=== PATIENT | male | born 1965 | race African-American/Black ===

== ENCOUNTER 2018-08-22 07:56 | Inpatient (IN) | payer MEDICARE ==
[2018-08-21 14:38] VITALS: BMI 29.5
[2018-08-22] MEDS ORDERED: Fentanyl 100 MCG/2 ML VIAL ONE ×6 (08:57→14:08)
[2018-08-22] MEDS ORDERED: Midazolam HCl 2 mg/2 ml Vial ONE ×2 (08:57→10:43)
[2018-08-22] MEDS ORDERED: Bupivacaine HCl 0.5%/Epinephrine 1:200,000/PF 30 ml Vial ONE (09:37)
[2018-08-22] MEDS ORDERED: Thrombin 5000 UNITS/5 ML VIAL ONE (09:37)
[2018-08-22] MEDS ORDERED: Ondansetron PF 4 MG/2 ML Vial ONE (10:33)
[2018-08-22] MEDS ORDERED: PROPOFOL 200 MG/20 ML VIAL ONE (10:33)
[2018-08-22] MEDS ORDERED: Rocuronium Bromide 10 MG/ML (10ML VIAL) ONE (10:33)
[2018-08-22] MEDS ORDERED: Lidocaine 1% PF 5 ML VIAL ONE (10:33)
[2018-08-22] MEDS ORDERED: ePHEDrine 50 MG/ML VIAL ONE (10:33)
[2018-08-22] MEDS ORDERED: Glycopyrrolate 0.2 MG/ML 5 ML SYRINGE ONE (10:33)
[2018-08-22] MEDS ORDERED: Dexamethasone 20 MG/5 ML VIAL ONE (10:33)
[2018-08-22] MEDS ORDERED: PROVENTIL INHALER 6.7 G (200 INHALATIONS) ONE (10:33)
[2018-08-22] MEDS ORDERED: PHENYLEPHRINE-NS 100 MCG/ML 10 ML SYRINGE ONE (10:33)
[2018-08-22] MEDS ORDERED: Lidocaine 2% Jelly 5 ML TUBE ONE (10:43)
[2018-08-22] MEDS ORDERED: Albuterol Sulfate HFA (OR ONLY) ONE (11:17)
[2018-08-22] MEDS ORDERED: Promethazine HCl 25 MG/ML VIAL ONE (13:11)
[2018-08-22] MEDS ORDERED: HYDROmorphone 0.5 MG/0.5 ML SYRINGE ONE (14:12)
--- NOTE | 2018-08-25 11:39 | OP ---
DATE OF PROCEDURE: 08/22/2018 MACHINE LEARNING INTERN: Joseph Dixon PA-C INDICATION: Neurologic decline. 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 PROCEDURE PERFORMED: Posterior cervical decompression, C7-T1. ANESTHESIA: General. DESCRIPTION OF PROCEDURE: The patient was brought into the operating room and placed under general anesthesia. He was flipped carefully from a supine to a prone position on the operating room table with careful attention in maintaining the neutral aspect of his neck, which was confirmed on lateral C-arm fluoroscopy. The posterior cervical incision was planned over C7-T1. After prepping and draping and after preoperative pause, the incision was created. The soft tissues were swept away from midline. Self-retaining retractors were placed in the wound for optimal exposure. After confirming the appropriate level with lateral oblique and AP views, C7-T1 laminectomy was performed in order to decompress the C7-T1 segment, where the patient had a critically high grade stenosis with signal change. After decompressing the segment, the wound was irrigated. Hemostasis was maintained throughout. The wound was then closed in anatomic layers and a pressure dressing was applied. There were no known procedural complications. Job ID: [id number]
--- NOTE | 2018-09-02 12:46 | PRG ---
DATE OF SERVICE: 09/02/2018 SUBJECTIVE: Mr. Amado remains in the ICU secondary to lack of bed availability on the surgical floor. He had a relatively uneventful 24 hours and he notes substantially improved pain control with FARM MACHINERY MECHANIC. I will ultimately defer to the Pain Management Service for timing and appropriate medications to transition him from a FARM MACHINERY MECHANIC to oral medicines. He reports working with Physical Therapy and Occupational Therapy yesterday, where they sat him up at bedside and even had him stand. I examined him again today myself where he has a stable exam. He has with near-normal central office maintainer strength on the left. He has fairly strong central office maintainer on the right side, but clearly has persistent weakness in the 4th and 5th digits, as well as muscle atrophy that he has had for quite some time. He has antigravity with hands and with legs. He can dorsiflex and plantar flex the feet. He has intact sensation throughout on exam. This clearly represents an improvement for him as compared to his night of admission. I also inspected his incision, he has had a rather copious amount of serosanguinous fluid coming out of the upper aspect. I believe this likely represents a seroma. I worked to express all this until it stopped leaking. There has been no evidence for spinal fluid leak, nor does he report any postural headaches, to make me believe he has one. We put a dry bandage on it and by the time I left the room , it did remain dry. I continued to advocate for inpatient rehab for Mr. Amado. I believe that if he would have gone there immediately after surgery, he likely would avoided his current predicament but he declined to do so. He remains myelopathic. 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 He clearly has some frustration and is anxious as I would anticipate. The plan will be to transition from the ICU to the floor. We will continue to monitor his incision. The goal then will be to go from the hospital to the inpatient rehab setting, setting an aggressive physical therapy. In the meanwhile, he will continue to receive physical therapy and occupational therapy on the inpatient side. Job ID: [id number] [facility]
== END 2018-08-22 15:35 | disposition home or self-care (01) | DRG 519 ==
LOC: SURG A 07:56 → EDSTATUS 08:57
PROVIDERS: ADMIT Neurological Surgery; ATTEND Neurological Surgery
PROC: 00NW0ZZ Release Cervical Spinal Cord, Open Approach (ICD-10-PCS; principal; 2018-08-22)
DX: M48.02 Spinal stenosis, cervical region (principal); M47.12 Other spondylosis with myelopathy, cervical region
CPT/HCPCS: 76000; J0670; J1100; J1170; J2001; J2250; J2405; J2550; J2704; J3010; J3490

== ENCOUNTER 2018-08-30 15:40 | Inpatient (IN) | payer MEDICARE ==
[~2018-08-30 15:40] MED LIST: Dexamethasone 20 MG/5 ML VIAL ONE; Lidocaine 1% PF 5 ML VIAL ONE; Ondansetron PF 4 MG/2 ML Vial ONE; PHENYLEPHRINE-NS 100 MCG/ML 10 ML SYRINGE ONE; PROPOFOL 200 MG/20 ML VIAL ONE; Rocuronium Bromide 10 MG/ML (10ML VIAL) ONE; Succinylcholine Chloride 20 MG/ML 10 ml SYRINGE FS ONE; Vecuronium 10 MG VIAL ONE; ePHEDrine 50 MG/ML VIAL ONE
[2018-08-30 17:22] LABS: #Basophils 0.1 thou/uL (0.0-0.2); #Lymphocytes 2.8 thou/uL (1.20-3.40); #Neutrophils 7.2 thou/uL (1.40-6.50); %Eosinophils 0.4 % (0.0-10.0); %Lymphocytes 25.3 % (21.0-51.0); %Monocytes 8.7 % (0.0-10.0); %Neutrophils 64.6 % (42.0-75.0); Hemoglobin 16.5 g/dL (14.0-18.0); Mean Corpuscular HGB CONC 33.9 g/dL (32.0-36.0); Mean Corpuscular Hemoglobin 31.9 pg (27.0-31.0); Mean Corpuscular Volume 94.1 fL (78.0-98.0); Mean Platelet Volume 7.2 fL (7.4-10.4); Platelet Count 291 thou/uL (130-400); RBC Distribution Width 12.4 % (11.5-14.5); Red Blood Cell (RBC) Count 5.18 mill/uL (4.70-6.10); White Blood Cell (WBC) Count 11.2 thou/uL (4.8-10.8)
[2018-08-30] MEDS ORDERED: Morphine 4 MG/ML VIAL ONE (17:22)
--- NOTE | 2018-08-30 17:22 | CT ---
FCT thoracic spine, noncontrast CLINICAL HISTORY: Weakness, decreased sensation FINDINGS: There is a partially imaged postoperative change and prominent osseous irregularity with sc lerosis of the lower cervical spine. Please correlate with report from separately dictated cervical s pine CT exam for additional details in this regard. Spondylolisthesis at C7-T1 level is again demonst rated. There is evidence of posterior decompression at the low cervical spine with ill-defined sample collector ior paraspinous fluid density with overlying metallic chandan, related to recent surgery. There is pa tchy sclerosis of the superior aspect of the T1 vertebral body adjacent the prominent arthropathy of the low cervical spine favoring Modic type III degenerative change. There is fragmentation of anterio r osteophyte at the anterior T1 vertebral body. Evaluation of the postoperative vertebral canal at th is region is not reliably performed on the basis of noncontrast CT imaging. There is disc space narrowing, marginal osteophyte formation and endplate sclerosis involving the T6 and T7 levels, favoring degenerative process. No acute compression fracture of the thoracic spine. No significant retropulsion of bone into the aura tebral canal. Contents of vertebral canal are limited in assessment on the basis of noncontrast CT im aging. Incidental note of mildly prominent mediastinal lymph nodes. Correlate clinically. IMPRESSION: Extensive sclerosis and osseous remodeling with disc space narrowing and spondylolisthesi s at the incidentally images lower cervical spine adjacent partially imaged side of hardware fusion. Correlate with separately dictated CT cervical spine report for additional details. Presumed postoperative fluid density, ill-defined and incompletely assessed on noncontrast CT imaging at site of posterior decompression of the low cervical spine, with overlying skin chandan. Vertebral canal contents including cervical spinal cord in this region is not reliably assessed. Given neurolo gic deficits, consider MRI to further characterize. There is sclerosis of the T6-7 level with associated disc space narrowing, endplate irregular and mar ginal osteophyte formation favoring Modic type III degenerative sclerosis. No acute thoracic spine compression fracture or retropulsion of bone. Transcribed Date/Time: 08/30/2018 7:12 PM
--- NOTE | 2018-08-30 17:24 | CT ---
FCT cervical spine noncontrast: 08/30/2018 HISTORY: 52-year-old male with right upper extremity weakness. Decreased motor function and numbness in bilate ral upper extremity is and lower extremities. Bladder incontinence. Bowel incontinence. COMPARISON: None FINDINGS: Anterior metallic plate and screws at C3, C4, and C5. Successful ankylosis between the C3, C4, and C5 vertebral bodies by bony bridges across the endplates. Bony hypertrophy of the vertebral bodies and endplates encroach upon the anterior aspect of the spinal canal causing central spinal canal stenosis . There is moderate to severe degenerative disc disease at C5-6, C6-7, and C7-T1. There is a prominen t grade 1 anterolisthesis of C7 on T1 due to moderate bilateral facet DJD. Moderate to severe left fa cet DJD at C5-6. No evidence of hardware loosening. Moderate and large bilateral uncinate process ost eophytes encroach upon the bilateral neural foramina. All of these hypertrophic degenerative changes are superimposed on a developmentally small caliber spinal canal. C1-2: No additional exacerbation of developmentally small caliber spinal canal. Mild to moderate cent ral stenosis. C2-3: Mild disc space narrowing. No exacerbation of developmentally small caliber spinal canal. No ne ural foraminal stenosis. C3-4: Moderate to severe central spinal canal stenosis. Severe bilateral neural foraminal stenosis. C4-5: Moderate central spinal canal stenosis, right worse than left. Severe right neural foraminal st enosis. Mild to moderate left neural foraminal stenosis. C5-6: Moderate central spinal canal stenosis. Severe bilateral neural foraminal stenosis. C6-7: Moderate to severe central spinal canal stenosis. Moderate to severe right neural foraminal sang nosis. Mild to moderate left neural foraminal stenosis. C7-T1: Severe bilateral neural foraminal stenosis. Moderate central stenosis. IMPRESSION: 1. Developmentally small caliber spinal canal exacerbated by cervical spondylosis. 2. Multilevel high-grade central spinal canal stenosis and multilevel severe neural foraminal stenosi s. 3. Status post anterior cervical discectomy and fusion at C3-4-5 with successful ankylosis of vertebr al bodies. 4. Prominent grade 1 spondylolisthesis at C7-T1 due to bilateral high-grade facet osteoarthrosis.
[2018-08-30 17:37] LABS: ALT (SGPT) 19 U/L (8-55); AST (SGOT) 17 U/L (5-34); Albumin 4.5 g/dL (3.5-5.0); Alkaline Phosphatase 73 U/L (40-150); Anion Gap 15 mmol/L (10-20); BUN (Urea Nitrogen) 11 mg/dL (8.4-25.7); Bilirubin, Total 0.4 mg/dL (0.2-1.2); Calc. Creatinine Clearance 0 mL/min (70-130); Calcium 9.8 mg/dL (7.8-10.44); Carbon Dioxide 24 mmol/L (22-29); Chloride 99 mmol/L (98-107); Estimated GFR-MDRD Greater than 90; Globulin 3.3 g/dL (2.4-3.5); Glucose 100 mg/dL (70-105); Potassium 3.9 mmol/L (3.5-5.1); Protein, Total 7.8 g/dL (6.0-8.3); Sodium 134 mmol/L (136-145)
[2018-08-30] MEDS ORDERED: Diazepam 5 MG TAB ONE (17:48)
[2018-08-30] MEDS ORDERED: Midazolam HCl 2 mg/2 ml Vial ONE ×2 (18:41→23:42)
[2018-08-30] MEDS ORDERED: Fentanyl 100 MCG/2 ML VIAL ONE ×3 (18:41→23:42)
--- NOTE | 2018-08-30 18:52 | MRI ---
FCT neck with contrast: 08/30/2018 HISTORY: 29-year-old male with fever and throat pain. FINDINGS: There are multiple nonnecrotic enlarged cervical lymph nodes at levels 1B, 2A, and 2B bilaterally. Fo r example, a level 2A lymph node on the left measures 2.5 x 2 x 1.5 cm. One of the right level 2B lym ph nodes measures 2 x 0.8 x 2.5 cm. There is diffuse hyperplasia of the adenoids. [place] tonsils ar e bilaterally symmetrically mildly to moderately enlarged. Epiglottis is of normal thickness. Lingual tonsil is minimally enlarged. No retropharyngeal abscess. Unremarkable thyroid. Mucosal thickening o f true and false focal cords, and aryepiglottic folds. Other than the lymphadenopathy, no other abnor mality is identified involving the parotid, carotid, submandibular, retropharyngeal, welcome center agent, para pharyngeal, and posterior cervical, spaces. No thyroid enlargement. IMPRESSION: 1. Findings suggestive of a diffuse infectious or inflammatory process, perhaps viral, with hyperplas ia of Waldeyer's ring, laryngitis, and upper cervical lymphadenopathy. 2. No abscess.
--- NOTE | 2018-08-30 19:32 | PRG ---
DATE OF SERVICE: 08/30/2018 SUBJECTIVE: Mr. Amado is a 52-year-old man, approximately a week out from a C7-T1 laminectomy. This was done for myelopathy. He initially demonstrated improvement, but over the last few days has gotten worse involving quadriparesis , loss of the ability of walking, urinary and fecal incontinence. Review of a CT demonstrates C7 on T1 spondylolisthesis. This was present preoperatively as well, although there is not a clear change in this, there does appear to be a new disc extrusion at C7-T1 that became symptomatic potentially after a coughing spell. MRI confirms areas of cord edema and associated stenosis from C5 to the top of T1 and a laminectomy defect at C7-T1.I am concerned about a stenotic cord compression, and as such, we will plan to return to the OR. I will plan to do a C5 through T1 laminectomy, partial facetectomy, and foraminotomies with screw and zeb fixation at C5, C6, possibly C7, T1, and T2. I discussed the goals, indications, risks, alternatives, and complications regarding the surgery up to and including, but not limited to, wound healing issues such as infection, dehiscence, CSF leak, the need for more surgeries for bleeding, instrumentation failure, or recurrence or persistence of stenosis or other reasons. He understands these risks and wishes that we proceed with surgery. He also understands there is a risk of temporary and permanent neurologic deficit that could be persistent or residual or worsen. He understands that if we do not do anything that his chance of potential recovery is minimal and his chance of worsening is substantial. On exam, he is alert, appropriate. He is very weak in his UE and unable to lift his upper extremities over 90 degrees. He has significant hand intrinsic weakness and atrophy, right greater than left UE and hand, and also weakness essentially from C5 distal. He is only weakly able to move his lower extremities, and he has clonus in the right lower extremity. #1 Neurological decline with cervical stenosis and spondylolisthesis Job ID: [id number] [facility]
[2018-08-30] MEDS ORDERED: Sodium Chloride 0.9% 20 ML ONE (19:52)
[2018-08-30] MEDS ORDERED: Thrombin 5000 UNITS/5 ML VIAL ONE ×2 (19:52→21:43)
[2018-08-30] MEDS ORDERED: Bacitracin Zinc Ointment 30 gm TUBE ONE (21:43)
[2018-08-31] MEDS ORDERED: Propofol 1,000 MG/100 ML VIAL IV ONE (00:58)
[2018-08-31] MEDS ORDERED: Fleet Enema 133 ML BOT PR PRN (01:29)
[2018-08-31] MEDS ORDERED: Ondansetron PF 4 MG/2 ML Vial IVP PRN ×2 (01:29→13:54)
[2018-08-31] MEDS ORDERED: traMADol HCl 50 MG TAB PO PRN (01:29)
[2018-08-31] MEDS ORDERED: Mag-Al 1200 mg/1200 mg/30 ML UDCUP PO PRN (01:29)
[2018-08-31] MEDS ORDERED: Milk Of Magnesia 30 ML UDCUP PO PRN (01:29)
[2018-08-31] MEDS ORDERED: Bisacodyl 10 MG SUPP PR PRN (01:29)
[2018-08-31] MEDS ORDERED: Acetaminophen/Codeine 30-300mg Tablet PO PRN (01:29)
[2018-08-31] MEDS ORDERED: Acetaminophen 325 MG TAB PO PRN (01:29)
[2018-08-31 01:35] LABS: Actual Bicarbonate (HCO3a) 23.2 mEq/L (22-28); Base Excess (BEa) -2.5 mEq/L (-2.0 to +3.0); CO2 Tension 43.3 mmHg (35.0-45.0); Calcium, Ionized 1.13 mmol/L (1.12-1.30); Carboxyhemoglobin (COHb) 4.5 gm% (0.0-3.0); Hemoglobin (Hb) 15.8 g/dL (14.0-18.0); O2 Tension (PaO2) 118.2 mmHg (80.0-100.0); Potassium - ABG Lab 4.05 mmol/L (3.70-5.30); pH, Arterial 7.35 (7.35-7.45)
[2018-08-31 01:36] LABS: ALV-art Gradient 112.875 (0-20); Puncture Site ALINE
[2018-08-31] MEDS ORDERED: Propofol BOLUS 1,000 MG/100 ML VIAL IV PRN (01:51)
[2018-08-31] MEDS ORDERED: Propofol 1,000 MG/100 ML VIAL IV PRN (01:51)
[2018-08-31] MEDS ORDERED: Morphine 2 MG/ML SYRINGE SLOW IVP PRN (01:51)
[2018-08-31] MEDS ORDERED: fentaNYL Citrate/PF 2,000 MCG in Sodium Chloride 0.9% 60 ML IV SCH (01:51)
[2018-08-31] MEDS ORDERED: Lorazepam 2 MG/ML VIAL SLOW IVP PRN (01:51)
[2018-08-31] MEDS ORDERED: DISCONTINUE PREVIOUS NARCOTIC PAIN MEDICATIONS AND BENZODIAZEPINES FS SCH (01:51)
[2018-08-31] MEDS ORDERED: Fentanyl BOLUS 250 ML IVPB PRN (01:51)
[2018-08-31 01:55] LABS: INR-International Normal Ratio 1.1; PTT 27.9 SEC (22.9-36.1); Prothrombin Time 14.2 SEC (12.0-14.7)
[2018-08-31] MEDS ORDERED: Sodium Chloride 0.9% 1,000 ML IV SCH (02:00)
[2018-08-31] MEDS: Sodium Chloride 0.9% 1,000 ML IV SCH ×2 (02:05→14:43)
[2018-08-31 02:21] LABS: CO2 Tension 35.7 mmHg (35.0-45.0); Calcium, Ionized 1.12 mmol/L (1.12-1.30); Carboxyhemoglobin (COHb) 3.4 gm% (0.0-3.0); Hemoglobin (Hb) 15.8 g/dL (14.0-18.0); O2 Tension (PaO2) 142.8 mmHg (80.0-100.0); Potassium - ABG Lab 3.87 mmol/L (3.70-5.30); pH, Arterial 7.41 (7.35-7.45)
[2018-08-31] MEDS: CEFAZOLIN 2 GM in Premix Bag 1 BAG IVPB SCH ×3 (02:21→18:48)
[2018-08-31 02:27] VITALS: BMI 30.6
[2018-08-31 02:35] LABS: ALV-art Gradient 97.775 (0-20); Analyzer IN Cardio ER; Puncture Site ALINE
[2018-08-31] MEDS: HYDROcodone/Acetaminophen 7.5/325 mg Tablet PO PRN ×3 (02:35→11:41)
[2018-08-31] MEDS: Morphine 2 MG/ML SYRINGE SLOW IVP PRN ×6 (03:01→12:47)
[2018-08-31] MEDS: Dexamethasone 4 mg/ml Vial SLOW IVP SCH ×3 (05:36→18:44)
[2018-08-31] MEDS: tiZANidine HCl 4 MG TAB PO PRN ×2 (05:37→11:39)
[2018-08-31] MEDS: Pantoprazole 40 MG VIAL IVP SCH (09:43)
--- NOTE | 2018-08-31 10:16 | PDOC.PN ---
- Subjective Encounter Start Date: 08/31/18 Encounter Start Time: 09:30 Subjective: pt up in bed complains of pain to his cervical area. -: pt upset since he had a bad night due to significant pain - Objective Vital Signs & Weight: Vital Signs (12 hours) Temp Pulse Resp Pulse Ox 08/31/18 04:00 98.1 F 96 08/31/18 02:00 17 08/31/18 01:08 139 H 08/31/18 01:00 98.0 F 100 Weight Weight 225 lb 15.581 oz Most Recent Monitor Data Heart Rate from ECG 90 NIBP 143/84 NIBP BP-Mean 103 Respiration from ECG 21 SpO2 96 I&O: 08/30/18 08/31/18 09/01/18 06:59 06:59 06:59 Intake Total 575 Output Total 315 Balance 260 Result Diagrams: 08/30/18 17:13 08/30/18 17:13 Phys Exam - Physical Examination neck in brace upper lung mild wheezing, no wheezing to lower lung Cardiovascular: RRR, no significant murmur, no rub, gallop, irregular Gastrointestinal: soft, non-tender, no distention, positive bowel sounds Musculoskeletal: no edema, pulses present, edema present Dx/Plan (1) Leukocytosis Code(s): D72.829 - ELEVATED WHITE BLOOD CELL COUNT, UNSPECIFIED Status: Acute (2) Smoking Code(s): F17.200 - NICOTINE DEPENDENCE, UNSPECIFIED, UNCOMPLICATED Status: Acute (3) Post-laminectomy syndrome Code(s): M96.1 - POSTLAMINECTOMY SYNDROME, NOT ELSEWHERE CLASSIFIED Status: Acute - Plan pt has mild wheezing and cough, will add duonebs. He is a smoker and has -: been trying to quit. will put him on a nicotine patch. leukocytosis -: most likely reactive. * . Review of Systems - Review of Systems Respiratory: negative: Cough, Dry, Shortness of Breath, Hemoptysis, SOB with Excertion, Pleuritic Pain, Sputum, Wheezing Cardiovascular: negative: chest pain, palpitations, orthopnea, paroxysmal nocturnal dyspnea, edema, light headedness, other Gastrointestinal: negative: Nausea, Vomiting, Abdominal Pain, Diarrhea, Constipation, Melena, Hematochezia, Other Genitourinary: negative: Dysuria, Frequency, Incontinence, Hematuria, Retention , Other - Medications/Allergies Allergies/Adverse Reactions: Allergies Allergy/AdvReac Type Severity Reaction Status Date / Time No Known Allergies Allergy Unverified 08/21/18 14:35 Medications: Current Medications Acetaminophen (Tylenol) 650 mg PO Q4H PRN PRN Reason: Headache/Fever or Pain Acetaminophen/Codeine Phosphate (Tylenol #3) 1 tab PO Q3H PRN PRN Reason: Mild Pain (1-3) Hydrocodone Bitart/Acetaminophen ([place] 7.5/325) 2 tab PO Q4H PRN PRN Reason: Moderate Pain (4-6) Last Admin: 08/31/18 07:34 Dose: 2 tab Al Hydroxide/Mg Hydroxide (Maalox) 30 ml PO Q4H PRN PRN Reason: Indigestion Albuterol/Ipratropium (Duoneb) 3 ml NEB [id number] CECILE Bisacodyl (Dulcolax) 10 mg NV Q12H PRN PRN Reason: Constipation Dexamethasone (Decadron) 4 mg SLOW IVP Q6HR [facility] Last Admin: 08/31/18 05:36 Dose: 4 mg Cefazolin Sodium/Dextrose 2 gm (/ Device) 50 mls @ 100 mls/hr IVPB Q8H [facility] Stop: 09/03/18 02:01 Last Admin: 08/31/18 10:07 Dose: 50 mls Sodium Chloride (Normal Saline 0.9%) 1,000 mls @ 75 mls/hr IV .[id number] [facility] Last Admin: 08/31/18 02:05 Dose: 1,000 mls Magnesium Hydroxide (Milk Of Magnesium) 30 ml PO Q12H PRN PRN Reason: Constipation Morphine Sulfate (Morphine) 2 mg SLOW IVP Q1H PRN PRN Reason: Severe Pain (7-10) Last Admin: 08/31/18 09:45 Dose: 2 mg Nicotine (Nicoderm Patch) 21 mg TD Q24HR [facility] Ondansetron HCl (Zofran) 4 mg IVP Q6H PRN PRN Reason: Nausea Last Admin: 08/31/18 02:40 Dose: 4 mg Pantoprazole Sodium (Protonix) 40 mg IVP DAILY [facility] Last Admin: 08/31/18 09:43 Dose: 40 mg Sodium Biphosphate/Sodium Phosphate (Fleet Enema) 133 ml NV ONE PRN PRN Reason: Constipation Stop: 09/30/18 01:30 Sodium Chloride (Flush - Normal Saline) 10 ml IVF PRN PRN PRN Reason: Saline Flush Tizanidine HCl (Zanaflex) 4 mg PO Q6H PRN PRN Reason: Muscle Spasm Last Admin: 08/31/18 05:37 Dose: 4 mg Tramadol HCl (Ultram) 50 mg PO Q6H PRN PRN Reason: Mild Pain (1-3)
[2018-08-31] MEDS: Nicotine 21 MG PATCH TD SCH (11:04)
[2018-08-31] MEDS ORDERED: diphenhydrAMINE 50 MG/ML VIAL IM PRN (13:54)
[2018-08-31] MEDS ORDERED: Promethazine HCl 25 MG/ML VIAL IM PRN (13:54)
[2018-08-31] MEDS ORDERED: Naloxone HCl 0.4 mg/ml Vial IV PRN (13:54)
[2018-08-31] MEDS ORDERED: diphenhydrAMINE 50 MG/ML VIAL IVP PRN (13:54)
[2018-08-31] MEDS ORDERED: Communication Order-Pharmacy FS SCH (14:00)
[2018-08-31] MEDS: fentaNYL Citrate/PF 2,000 MCG in Sodium Chloride 0.9% 60 ML IV PRN (14:44)
--- NOTE | 2018-08-31 15:14 | PRG ---
DATE OF SERVICE: 08/31/2018 SUBJECTIVE: Mr. Amado is postoperative day 1 from C5 to T2 posterior to lateral stabilization and C5 to T1 decompression. This morning, obviously, he has incisional perioperative related pain, and we will add a MILLING PLANER OPERATOR pump for pain control. On exam, he is alert and appropriate. He is in a well-fitting collar, and I have let he and his girlfriend know along with the nursing staff that the collar only needs to be worn, in my opinion, when he is out of bed. Obviously, Dr. Bower will be returning tomorrow and he can weigh at in this regard based on his thoughts. OBJECTIVE: On exam, he is able to lift his bilateral elbows above the shoulder, which is already an improvement. He has moderate right upper extremity weakness in particular in his hand intrinsics, but he is able to activate his hand intrinsics, but I suspect this will be the most delayed in regard to recover. He does activate his left hand intrinsics with mild weakness, and he is able to bend his hips, knees, and move at the ankles and toes, all of which were an improvement. He has moderate right clonus in the lower extremity and mild left clonus with beats bilaterally, but again I am pleased with this. He feels as if his light touch sensation has also improved. He does feel the tug of the Arreola catheter, which is encouraging in regard to bowel and bladder function. ASSESSMENT AND PLAN: Overall, I have let the patient know that I am pleased with how he is doing. I would be fine with removal of his arterial line, but I would like to continue to maintain his MAPS over 80. We have been able to do this simply with IV fluids. We will continue his Decadron at its current dose of 4 q.6 hours and perhaps we can initiate tapering tomorrow. We will order an ultrasound of the lower extremities. I will discuss his care further with Dr. Bower and update him in regard to the patient's present condition. The patient and his girlfriend are pleased with this plan. Job ID: [id number]
[2018-08-31] MEDS ORDERED: Acetaminophen With Codeine [Tylenol With Codeine #4] 1 TABLET PO PRN (16:00)
[2018-08-31] MEDS: Gabapentin 100 MG CAP PO SCH (21:09)
[2018-08-31] MEDS: Zolpidem Tartrate 5 MG TAB PO PRN (22:09)
[2018-09-01] MEDS: Dexamethasone 4 mg/ml Vial SLOW IVP SCH ×5 (00:19→23:39)
[2018-09-01] MEDS: CEFAZOLIN 2 GM in Premix Bag 1 BAG IVPB SCH ×3 (02:24→18:17)
[2018-09-01] MEDS: Sodium Chloride 0.9% 1,000 ML IV SCH ×2 (06:59→17:30)
[2018-09-01] MEDS: fentaNYL Citrate/PF 2,000 MCG in Sodium Chloride 0.9% 60 ML IV PRN ×2 (07:12→20:38)
[2018-09-01] MEDS: Pantoprazole 40 MG VIAL IVP SCH (08:58)
[2018-09-01] MEDS: Gabapentin 100 MG CAP PO SCH ×3 (08:58→20:39)
--- NOTE | 2018-09-01 10:01 | CON ---
DATE OF CONSULTATION: HISTORY OF PRESENT ILLNESS: Ingrsi is a 52-year-old gentleman with a history that is extensively well outlined in his extensive medical records. He was seen with a week history of progressive upper and lower extremity weakness and loss of bladder and bowel function. He apparently called Dr. Bower, who was his initial neurosurgeon. Surgery was performed almost about a week ago, following which he has had significant pain. An emergency CT MRI of the neck showed evidence of central disk herniation, spondylolisthesis, posterior epidural swelling, cord edema, cord infarction, severe cord compression at C7-T1 area. He was taken to the surgery again by Dr. Portillo. Postop, he was extubated. He is now in the ICU, reason for consult. He also underwent a CT of his thoracic spine that showed evidence of disk space narrowing at the area of T6-T7. Please review the MRI note by the neuroradiologist. He is now in the ICU, who said that he is still having significant weakness of both lower and upper extremity, still has loss of bowel and bladder function. He said prior to his surgery about a week ago, he was working at [employer] and standing for 6 hours without any problem. Pulmonary aguilar, he denies any coughing or wheezing. He smokes less than a pack a day without any prior history of TB, pneumonia, or bronchial asthma. PAST MEDICAL HISTORY: Pertinent for depression. Trauma-related injury. No diabetes or hypertension. PREVIOUS SURGERIES: Neck fusion 20 years ago, anterior fusion, bilateral hip surgery, hernia repair and multiple surgeries in left ankle. SOCIAL HISTORY: Alcohol, as noted every other day. Occasional marijuana. ALLERGIES: APPARENTLY NONE. REVIEW OF SYSTEMS: Unremarkable. PHYSICAL EXAMINATION: VITAL SIGNS: He saturates 95% on room air, pulse 90, blood pressure 150/90, respiratory rate 18. CHEST: Decreased breath sounds. No wheezing. CARDIAC: Normal S1, S2. No gallops. ABDOMEN: No mass. LABORATORY DATA: White count 11,000, H and H 16 and 48, platelet count was normal. His chemistry profile shows BUN and creatinine normal. Sodium 134. IMPRESSION: 1. Status post emergency surgery for cervical C5-C2 stabilization decompression surgery. 2. Tobacco abuse. 3. Previous surgery. PLAN: Continue antibiotics. Continue Decadron neb treatment as needed. DVT prophylaxis. We will discuss with Surgery. We will follow. Consultation note, 70 minutes, 50% in direct patient care. Job ID: [id number]
--- NOTE | 2018-09-01 10:09 | RAD ---
PORTABLE UPRIGHT FRONTAL CHEST RADIOGRAPH: DATE: 09/01/2018. COMPARISON: None. HISTORY: COPD. FINDINGS: There is incompletely evaluated postoperative hardware involving the lower cervical spine and upper t horacic spine. Remote bilateral clavicle fractures are noted. No pneumothorax, pleural fluid, focal consolidation, or alveolar edema. IMPRESSION: No acute findings. POS: TPC
[2018-09-01] MEDS: Nicotine 21 MG PATCH TD SCH (10:50)
--- NOTE | 2018-09-01 11:08 | ULT ---
FUS Venous Doppler Bilat History: [Impaired mobility. Recent surgery.] Comparison: None. Findings: Real-time grayscale, color, and spectral analysis of the bilateral lower extremity venous s ystem was performed. The common femoral, femoral, proximal portions greater saphenous and deep femora l veins as well as the popliteal and posterior tibial veins were interrogated. Normal flow, augmentation, and compression. Impression: No deep venous thrombosis.
--- NOTE | 2018-09-01 11:32 | OP ---
DATE OF PROCEDURE: 08/31/2018 Modifier 57 should be added to this surgery as the decision to operate was made on the day I saw the patient. Modifier 78 should be added to this surgery as this was an unplanned return to the operating room. Modifier 50 should be added as there was a bilateral revision decompression at C7-T1. PREPROCEDURE DIAGNOSIS: Progressive myelopathy with recent cervical thoracic decompression. POSTPROCEDURE DIAGNOSIS: Progressive myelopathy with recent cervical thoracic decompression. WASTEWATER SUPERVISOR: Yaakov Liang PA-C. PROCEDURES PERFORMED: 1. C5-C7 laminectomies, partial facetectomies, foraminotomies. 2. Bilateral C7-T1 revision hemilaminotomies, foraminotomies and partial facetectomies. 3. C5, C6, C7, T1, T2 posterior instrumented placement of screws. 4. Screw zeb construct for instrumentation stabilization. 5. C5-C6, C6-C7, C7-T1, T1-T2 posterolateral arthrodesis with local bone autograft obtained from same incision allograft. DESCRIPTION OF PROCEDURE: After informed consent was obtained from the patient and emergent nature discussed with the patient, brought to the OR. Proper patient, pause, and identification were carried out. He was placed under excellent endotracheal anesthesia and positioned prone on the OR table. Following the placement of [place], his head was secured in neutral position. The prior C7-T1 wound was identified. This region was sterilely cleansed, prepared, and draped. Proper patient, pause, and identification were carried out. The incision was extended cephalad and caudal and the wound opened and removal of chandan occurred. Sutures were removed. We identified the C7-T1 laminectomy defect in the surges of localization. We then went up to expose the C5, C6, C7, T1 and T2 segments in their entirety and we were careful to avoid the T2, T3 facet complexes. We then turned our attention to laminectomies at C5-C7 and bilateral revision hemilaminotomies at C7-T1 with partial facetectomies and foraminotomies. We did these laminectomies and bilateral revision hemilaminotomies. I was satisfied with decompression at this point. There was no appreciable hematoma. I was concerned based on the review of the preoperative MRI that recent coughing fit that the patient had had could have led to a disk extrusion, which had narrowed his canal and was a likely major contributor to his acute decline. Nevertheless, I then opted for stabilization and lateral mass screws were placed at C5, C6, C7 and pedicle screws were placed under fluoroscopic visualization at T1, T2, and then placed rods and final tightening occurred. There was no CSF leak. Copious irrigation occurred throughout. I then did a decortication of posterolateral regions, local bone autograft from the laminectomy and allograft were placed over the posterolateral regions for arthrodesis. Again, copious irrigation occurred throughout as did maximizing hemostasis. The wound was then closed in anatomic layers following sprinkling of vancomycin powder. I opted to keep the patient intubated and will allow him slowly to wake up for extubation postoperatively. Job ID: [id number] [facility]
[2018-09-01] MEDS: tiZANidine HCl 4 MG TAB PO PRN (12:48)
[2018-09-01] MEDS: Acetaminophen 500 MG TAB PO SCH ×2 (13:05→19:07)
[2018-09-01] MEDS: Ketorolac Tromethamine 30 MG/ML VIAL IVP PRN ×2 (13:05→19:07)
--- NOTE | 2018-09-01 17:00 | PRG ---
DATE OF SERVICE: 09/01/2018 SUBJECTIVE: Mr. Amado is now 2 days status post emergent posterior cervical decompression and fusion. He presented with a progressive course of quadriparesis and bowel and bladder dysfunction. He is over one week out from the cervical decompression for single segment high-grade stenosis with myelopathy. He is in the ICU today, but ready to move to the floor. He is ready to begin physical therapy and occupational therapy. I have talked to the inpatient director of rehabilitation, who will be meeting with him to work toward getting him into an inpatient rehab setting. Mr. Amado has improved substantially since surgery. He is antigravity with all 4 extremities. He has nearly normal opthalmic tech strength on the left hand and weaker opthalmic tech strength on the right. He reports normal sensation throughout. He does have an indwelling urinary catheter, which we can warrant to remove either later today or tomorrow. He continues to report substantial surgical pain, which is anticipated, given the nature of his surgery. He is currently using a INTERNET MARKETING CONSULTANT for pain control. My goal is to quickly transition him from IV narcotics to oral narcotics in an effort to get him more expeditiously placed into the inpatient rehab setting. He had a lower extremity ultrasound performed, which was negative for DVT. He has been seen by global analytics head while he remains in the ICU. I had a lengthy discussion with Mr. Amado and his significant other today regarding the course of events over the last few months as well as the last week with respect to his surgical procedures. I do believe he will continue to recover, but it will take some time. He is quite optimistic about his chances for recovery and eager to move toward rehabilitation. Job ID: [id number] [facility]
[2018-09-01] MEDS: Zolpidem Tartrate 5 MG TAB PO PRN (23:39)
[2018-09-02] MEDS: Ketorolac Tromethamine 30 MG/ML VIAL IVP PRN ×4 (01:08→21:02)
[2018-09-02] MEDS: Acetaminophen 500 MG TAB PO SCH ×3 (01:09→14:37)
[2018-09-02] MEDS: CEFAZOLIN 2 GM in Premix Bag 1 BAG IVPB SCH ×3 (02:27→18:36)
[2018-09-02] MEDS: Dexamethasone 4 mg/ml Vial SLOW IVP SCH ×4 (06:42→23:47)
[2018-09-02] MEDS: Gabapentin 100 MG CAP PO SCH ×3 (09:05→21:02)
[2018-09-02] MEDS: Pantoprazole 40 MG VIAL IVP SCH (09:06)
--- NOTE | 2018-09-02 10:00 | PRG ---
DATE OF SERVICE: 09/02/2018 SUBJECTIVE: This morning, he is surprisingly much better. Less pain, less shortness of breath. OBJECTIVE: VITAL SIGNS: Pulse 80, respiratory rate 22, saturations are 95%, blood pressure 127/77. CHEST: No wheezing or crackles. CARDIAC: Normal S1 and S2. No gallops. ABDOMEN: No masses. ASSESSMENT: Neurologically, he has much improved both upper and lower extremities strength. PLAN: 1. Continue aggressive PT and supportive care. 2. DVT prophylaxis. 3. We will follow. Job ID: [id number]
[2018-09-02] MEDS: Nicotine 21 MG PATCH TD SCH (10:32)
[2018-09-02] MEDS: Lorazepam 0.5 MG TAB PO PRN ×2 (11:14→18:48)
[2018-09-02] MEDS: fentaNYL Citrate/PF 2,000 MCG in Sodium Chloride 0.9% 60 ML IV PRN (12:18)
[2018-09-02] MEDS: Sodium Chloride 0.9% 1,000 ML IV SCH (14:40)
--- NOTE | 2018-09-02 17:02 | PDOC.PN ---
- Subjective Encounter Start Date: 09/02/18 Encounter Start Time: 17:01 Mr. Amado was seen today in follow-up of medical management following Spinal surgery. He says the pain is much better controlled today.He does not have any new complaints. - Objective MAR Reviewed: Yes Vital Signs & Weight: Vital Signs (12 hours) Temp Pulse Resp Pulse Ox 09/02/18 13:52 73 15 96 09/02/18 08:00 98.4 F 95 09/02/18 07:09 80 22 H 95 Weight Weight 225 lb 15.581 oz Most Recent Monitor Data Heart Rate from ECG 78 NIBP 146/83 NIBP BP-Mean 104 Respiration from ECG 17 SpO2 93 I&O: 09/01/18 09/02/18 09/03/18 06:59 06:59 06:59 Intake Total 3797.3 2377.3 480 Output Total 2585 2415 230 Balance 1212.3 -37.7 250 Result Diagrams: 08/30/18 17:13 08/30/18 17:13 Phys Exam - Physical Examination HEENT: PERRLA Respiratory: wheezing present + occasional wheeze Cardiovascular: RRR, no significant murmur, no rub Gastrointestinal: soft, non-tender, no distention, positive bowel sounds Musculoskeletal: no edema Dx/Plan (1) Cervical post-laminectomy syndrome Status: Acute (2) Smoking Code(s): F17.200 - NICOTINE DEPENDENCE, UNSPECIFIED, UNCOMPLICATED Status: Acute - Plan * Patient is s/p cervical decompression and fusion- he is clinically stable * Pain is well controlled * Tobacco abuse- he says he is enrolled in a smoking cessation program through Dr. Wolfe his primary Care Physician. * Continue with Incentive spirometry, and duonebs as needed.
[2018-09-02] MEDS: Acetaminophen 500 MG TAB PO PRN (21:02)
[2018-09-02] MEDS: Zolpidem Tartrate 5 MG TAB PO PRN (23:47)
[2018-09-03] MEDS: fentaNYL Citrate/PF 2,000 MCG in Sodium Chloride 0.9% 60 ML IV PRN ×2 (01:24→11:54)
[2018-09-03] MEDS: CEFAZOLIN 2 GM in Premix Bag 1 BAG IVPB SCH ×3 (01:25→20:27)
[2018-09-03] MEDS: Ketorolac Tromethamine 30 MG/ML VIAL IVP PRN ×4 (02:59→20:59)
[2018-09-03] MEDS: Lorazepam 1 MG TAB PO PRN ×4 (02:59→20:58)
[2018-09-03] MEDS: Acetaminophen 500 MG TAB PO PRN ×4 (02:59→20:58)
[2018-09-03] MEDS: Dexamethasone 4 mg/ml Vial SLOW IVP SCH ×4 (05:32→23:54)
[2018-09-03] MEDS: tiZANidine HCl 4 MG TAB PO PRN ×3 (06:00→17:27)
[2018-09-03] MEDS: Pantoprazole 40 MG VIAL IVP SCH (09:02)
[2018-09-03] MEDS: Gabapentin 100 MG CAP PO SCH (09:02)
[2018-09-03] MEDS: Nicotine 21 MG PATCH TD SCH (11:22)
--- NOTE | 2018-09-03 12:14 | PRG ---
DATE OF SERVICE: 09/03/2018 SUBJECTIVE: Mr. Amado is now up on the surgical floor after having been transferred out of the unit yesterday. I met with him this morning just for physical therapy about to visit with him. He recently had Pain Management Service visit, which has been making adjustments to his MANAGER R D. His main concern today is incisional pain. He is currently on a MANAGER R D with fentanyl and is also receiving muscle relaxant and has Tylenol for breakthrough pain. I inspected his incision where there continues to be what appears to be serosanguineous drainage from the superior aspect of the wound. It seems less copious to me today than I did yesterday. There is no indication at this time that there is concern for infection. I believe this is likely a postoperative fluid. It appears to be dark in nature consistent with subacute blood products mixed with irrigant and exudate. Neurologically, he has been stable. I have encouraged him to mobilize today and get out of the bed over to a chair. We will continue to work with Physical Therapy and Occupational Therapy. We await word on final disposition towards inpatient rehab. Job ID: [id number]
[2018-09-03] MEDS ORDERED: CEFAZOLIN 1 GM VIAL SLOW IVP SCH (13:00)
[2018-09-03] MEDS: Gabapentin 300 MG CAP PO SCH ×2 (15:09→20:27)
[2018-09-03] MEDS: HYDROmorphone 10 mg/100 ml CADD IV PRN ×2 (16:17→23:53)
--- NOTE | 2018-09-03 16:26 | PDOC.PN ---
- Subjective Encounter Start Date: 09/03/18 Encounter Start Time: 16:25 Subjective: feels a little better but still significant pain in neck -: able to walk some w PT but still very weak in legs and hands/arms -: leaked urine around the cathter when benavidez got kinked - Objective MAR Reviewed: Yes Vital Signs & Weight: Vital Signs (12 hours) Temp Pulse Resp BP Pulse Ox 09/03/18 13:48 87 20 96 09/03/18 12:00 98.0 F 88 18 160/73 H 95 09/03/18 08:00 98.3 F 80 16 138/80 93 L 09/03/18 07:10 82 20 94 L Weight Weight 225 lb 15.581 oz Most Recent Monitor Data Heart Rate from ECG 78 NIBP 146/83 NIBP BP-Mean 104 Respiration from ECG 17 SpO2 93 I&O: 09/02/18 09/03/18 09/04/18 06:59 06:59 06:59 Intake Total 2377.3 3193 Output Total 2415 2449 Balance -37.7 744 Result Diagrams: 08/30/18 17:13 08/30/18 17:13 Phys Exam - Physical Examination Constitutional: NAD HEENT: PERRLA, moist MMs, sclera anicteric, TM's clear, oral pharynx no lesions , 2+ tonsils Neck: no nodes, no JVD, supple, full ROM Respiratory: no wheezing, no rales, no rhonchi, wheezing present, clear to auscultation bilateral Cardiovascular: RRR, no significant murmur, no rub, gallop, irregular Gastrointestinal: soft, non-tender, no distention, positive bowel sounds Musculoskeletal: no edema, pulses present LE weakness Psychiatric: normal affect, A&O x 3 Dx/Plan (1) Cervical post-laminectomy syndrome Status: Acute (2) Smoking Code(s): F17.200 - NICOTINE DEPENDENCE, UNSPECIFIED, UNCOMPLICATED Status: Acute - Plan DVT proph w/SCDs Pain 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 -: HD stable.No new recs -: am labs. -: will follow -: pt would like Inpt rehab and not SNU ,if possible.CM aware * . Review of Systems - Review of Systems Constitutional: weakness, malaise. negative: fever, chills, sweats, other Eyes: negative: Pain, Vision Change, Conjunctivae Inflammation, Eyelid Inflammation, Redness, Other ENT: negative: Ear Pain, Ear Discharge, Nose Pain, Nose Discharge, Nose Congestion, Mouth Pain, Mouth Swelling, Throat Pain, Throat Swelling, Other Respiratory: negative: Cough, Dry, Shortness of Breath, Hemoptysis, SOB with Excertion, Pleuritic Pain, Sputum, Wheezing Cardiovascular: negative: chest pain, palpitations, orthopnea, paroxysmal nocturnal dyspnea, edema, light headedness, other Gastrointestinal: negative: Nausea, Vomiting, Abdominal Pain, Diarrhea, Constipation, Melena, Hematochezia, Other Genitourinary: negative: Dysuria, Frequency, Incontinence, Hematuria, Retention , Other Musculoskeletal: negative: Neck Pain, Shoulder Pain, Arm Pain, Back Pain, Hand Pain, Leg Pain, Foot Pain, Other Skin: negative: Rash, Lesions, Ganesh, Bruising, Other Neurological: Weakness, Numbness, Incoordination - Medications/Allergies Allergies/Adverse Reactions: Allergies Allergy/AdvReac Type Severity Reaction Status Date / Time No Known Allergies Allergy Unverified 08/21/18 14:35 Medications: Current Medications Acetaminophen (Tylenol) 1,000 mg PO Q6H PRN PRN Reason: Headache/Fever or Pain Last Admin: 09/03/18 15:16 Dose: 1,000 mg Al Hydroxide/Mg Hydroxide (Maalox) 30 ml PO Q4H PRN PRN Reason: Indigestion Albuterol/Ipratropium (Duoneb) 3 ml NEB [id number] [facility] Last Admin: 09/03/18 13:48 Dose: 3 ml Bisacodyl (Dulcolax) 10 mg TX Q12H PRN PRN Reason: Constipation Dexamethasone (Decadron) 4 mg SLOW IVP Q6HR [facility] Last Admin: 09/03/18 11:22 Dose: 4 mg Diphenhydramine HCl (Benadryl) 25 mg IVP Q3H PRN PRN Reason: Itching Diphenhydramine HCl (Benadryl) 25 mg PO Q3H PRN PRN Reason: Itching Diphenhydramine HCl (Benadryl) 25 mg IM Q3H PRN PRN Reason: Itching Gabapentin (Neurontin) 300 mg PO TID [facility] Last Admin: 09/03/18 15:09 Dose: 300 mg Hydromorphone HCl (Dilaudid Cadd) 0 mg IV INF PRN PRN Reason: Pain Last Admin: 09/03/18 16:17 Dose: 10 mg Sodium Chloride (Normal Saline 0.9%) 1,000 mls @ 0 mls/hr IV .Q0M [facility] Last Admin: 09/02/18 14:40 Dose: 1,000 mls Cefazolin Sodium/Dextrose 2 gm (/ Device) 50 mls @ 100 mls/hr IVPB Q8HR [facility] Last Admin: 09/03/18 15:09 Dose: 50 mls Ketorolac Tromethamine (Toradol) 30 mg IVP Q6H PRN PRN Reason: Pain Last Admin: 09/03/18 15:16 Dose: 30 mg Lorazepam (Ativan) 0.5 mg PO Q6H PRN PRN Reason: Anxiety Last Admin: 09/03/18 15:16 Dose: 0.5 mg Magnesium Hydroxide (Milk Of Magnesium) 30 ml PO Q12H PRN PRN Reason: Constipation Miscellaneous Information (Communication Order-Pharmacy) 1 each FS ASDIR [facility] Naloxone HCl (Narcan) 0.2 mg IV Q5MIN PRN PRN Reason: Opiate Reversal Nicotine (Nicoderm Patch) 21 mg TD Q24HR [facility] Last Admin: 09/03/18 11:22 Dose: 21 mg Ondansetron HCl (Zofran) 4 mg IVP Q6H PRN PRN Reason: Nausea/Vomiting Pantoprazole Sodium (Protonix) 40 mg IVP DAILY [facility] Last Admin: 09/03/18 09:02 Dose: 40 mg Acetaminophen With Codeine [Tylenol With Codeine #4] 1 Tablet 0 each PO Q6H PRN PRN Reason: Pain Promethazine HCl (Phenergan) 12.5 mg IM Q4H PRN PRN Reason: Nausea/Vomiting Sodium Biphosphate/Sodium Phosphate (Fleet Enema) 133 ml TX ONE PRN PRN Reason: Constipation Stop: 09/30/18 01:30 Sodium Chloride (Flush - Normal Saline) 10 ml IVF PRN PRN PRN Reason: Saline Flush Last Admin: 09/01/18 12:48 Dose: 10 ml Tizanidine HCl (Zanaflex) 4 mg PO Q6H PRN PRN Reason: Muscle Spasm Last Admin: 09/03/18 11:22 Dose: 4 mg Zolpidem Tartrate (Ambien) 5 mg PO HSPRN PRN PRN Reason: Insomnia Last Admin: 09/02/18 23:47 Dose: 5 mg
[2018-09-03] MEDS: Sodium Chloride 0.9% 1,000 ML IV SCH (20:27)
[2018-09-03] MEDS: Zolpidem Tartrate 5 MG TAB PO PRN (23:54)
--- NOTE | 2018-09-04 00:51 | PRG ---
DATE OF SERVICE: 09/02/2018 TIME SEEN: At 12:20 p.m. SUBJECTIVE: I am seeing Mr. Amado for the first time since his reoperation for the weekend. He was admitted to the ICU after surgery on Saturday morning and is now postop day 3 following posterior cervical fusion. He has had continued drainage from his incision essentially since he came back up from surgery, but has been on around the clock antibiotics in the form of 2 g of Ancef q.8 IV. He has a struggle with considerable pain, but at the moment actually appears to be doing quite well and is more causally conversant at bedside. He expresses frustrations with how things went last week saying that he called essentially every day to the office. We spoke Saturday, Saturday, Saturday, and regarding persistent myelopathic symptoms, which I at that time felt was within the expected limitations of his postoperative course for anybody with the type of signal change and myelopathic symptoms that he had in the preoperative state. Unfortunately, over the weekend, his symptoms progressed to include the loss of bowel control, which prompted him to go to the Emergency Department via EMS, which is the definitive correct course. He was found to have likely reherniation and increased signal change with progressive symptoms to include a C5 myotome. This was the reason that he was taken to the OR by Dr. Portillo on Saturday night. At present, he has again significantly improved dysfunction in terms of his hand according to his report compared to where he was last week, so this is good to see. He moves all 4 extremities. He is feeding himself right now as we speak. So this is good news. He expresses the deep desire to go to the inpatient rehab, which I fully support. Consultations demonstrated process just pending insurance approval. I noted he had a slightly elevated white blood cell count, but has slightly lowered sodium this morning on the morning lab draws, this will just need to be followed up. Therapy consults have already been ordered, they have seen him already this week, but this will need them to be aggressive to try to regain as much function as possible. We will continue to follow. Job ID: [id number]
[2018-09-04] MEDS: Ketorolac Tromethamine 30 MG/ML VIAL IVP PRN ×3 (03:16→17:53)
[2018-09-04] MEDS: Lorazepam 1 MG TAB PO PRN ×3 (03:17→17:54)
[2018-09-04] MEDS: Acetaminophen 500 MG TAB PO PRN ×3 (03:18→17:53)
[2018-09-04] MEDS: tiZANidine HCl 4 MG TAB PO PRN ×2 (03:32→18:34)
[2018-09-04] MEDS: CEFAZOLIN 2 GM in Premix Bag 1 BAG IVPB SCH ×3 (05:25→20:38)
[2018-09-04] MEDS: Dexamethasone 4 mg/ml Vial SLOW IVP SCH ×3 (05:26→17:29)
[2018-09-04 06:37] LABS: #Lymphocytes 1.1 thou/uL (1.20-3.40); #Monocytes 0.9 thou/uL (0.11-0.59); #Neutrophils 10.5 thou/uL (1.40-6.50); %Basophils 0.2 % (0.0-1.0); %Eosinophils 0.1 % (0.0-10.0); %Lymphocytes 8.9 % (21.0-51.0); %Monocytes 7.5 % (0.0-10.0); %Neutrophils 83.3 % (42.0-75.0); Hemoglobin 12.4 g/dL (14.0-18.0); Mean Corpuscular HGB CONC 32.2 g/dL (32.0-36.0); Mean Corpuscular Hemoglobin 30.5 pg (27.0-31.0); Mean Corpuscular Volume 94.7 fL (78.0-98.0); Mean Platelet Volume 7.4 fL (7.4-10.4); Platelet Count 312 thou/uL (130-400); RBC Distribution Width 12.2 % (11.5-14.5); Red Blood Cell (RBC) Count 4.07 mill/uL (4.70-6.10); White Blood Cell (WBC) Count 12.7 thou/uL (4.8-10.8)
[2018-09-04 06:58] LABS: Anion Gap 12 mmol/L (10-20); BUN (Urea Nitrogen) 17 mg/dL (8.4-25.7); Calc. Creatinine Clearance 174 mL/min (70-130); Carbon Dioxide 27 mmol/L (22-29); Chloride 98 mmol/L (98-107); Estimated GFR-MDRD Greater than 90; Glucose 163 mg/dL (70-105); Potassium 4.9 mmol/L (3.5-5.1); Sodium 132 mmol/L (136-145)
--- NOTE | 2018-09-04 08:05 | PRG ---
DATE OF SERVICE: 09/03/2018 Mr. Amado today is postop day #[address] Portillo on Saturday for worsening myelopathy. He has been transferred to the floor since yesterday evening. His pain continues to be a struggle, particularly in the mornings after he has fallen asleep and cannot stay on top of his pain pump, which he still uses mostly around the clock whenever it is due. He had several hours yesterday afternoon, where he was no longer draining out of the top part of the incision. However, this morning and since last night, he has resaturated the bandage, which has just been re-changed. I removed and expressed even more fluid from the upper part of the incision. We will continue to monitor this. He had his last dose of ordered Ancef this morning, so we will just need to continue this every 8 hours going forward until drainage stopped. I would like to see him more with therapy as much as possible and at this time, we are just in a holding pattern pending authorization from rehab, whether he will be able to go to inpatient rehab or not. I talked to Argenis, the liaison yesterday, who confirmed that all paperwork had been submitted and we will continue to watch. He did have a elevated white count yesterday and is very slightly hyponatremic. This will need to continue to be monitored, so this is not out of normal range given his already severe myelopathy. He has not really been out of bed except he used the restroom and it is incredibly unstable and unsafe to do so without assistance at this time. We will continue to follow along. Job ID: [id number]
[2018-09-04] MEDS: Pantoprazole 40 MG VIAL IVP SCH (08:41)
[2018-09-04] MEDS: Gabapentin 300 MG CAP PO SCH ×3 (08:41→20:37)
[2018-09-04] MEDS ORDERED: Amlodipine 5 MG TAB PO SCH (09:30)
[2018-09-04] MEDS: Nicotine 21 MG PATCH TD SCH (10:23)
[2018-09-04] MEDS: HYDROmorphone 10 mg/100 ml CADD IV PRN ×2 (11:00→18:23)
--- NOTE | 2018-09-04 15:07 | ULT ---
EXAM: Bilateral lower extremity venous ultrasound HISTORY: Bilateral lower extremity pain and edema; immobility COMPARISON: 09/01/2018 TECHNIQUE: Multiplanar grayscale and color Doppler images were obtained in a bilateral lower extremit y venous ultrasound. Spectral analysis of the Doppler waveforms were performed. FINDINGS: The bilateral common femoral vein, profunda femoral veins, superficial femoral veins, and p opliteal veins are normal in appearance without visible thrombus. These vessels demonstrate normal compression, flow, and augmentation. The bilateral posterior tibial veins and greater saphenous veins are patent without evidence of DVT. IMPRESSION: No evidence of DVT.
--- NOTE | 2018-09-04 15:12 | PDOC.EVN ---
Event Note - Event Note Event Note: Chart reviewed. BP running high,likley due to pain will add low dose norvasc. monitor sodium levels and worsening leucocytosis.pain control per primary team Will follow from a distance. Pls call gini Alba
--- NOTE | 2018-09-04 17:34 | PRG ---
DATE OF SERVICE: 09/04/2018 SUBJECTIVE: I have actually seen Mr. Amado twice today, once early this morning and once at the lunch time, both of which were related check on, one how he was doing and then the afternoon was to check on his incisional status. He still had some drainage yesterday via the most cephalad aspect of his incision. There was still some this morning upon review, but at lunchtime, his wound appeared actually very dry upon inspection and even palpation around the wound did not express any more fluid. The dressing also had very very scant drainage that was stable to the drainage that was there this morning on the same bandage, so I think at this time, he will likely or at least hopefully stop draining completely. We will continue to monitor this and keep him on antibiotics for the time being. If he continues to have no more drainage tomorrow which would site 24 hours without drainage, we can likely stop antibiotics at that point. His function continues to improve. His pain is better controlled today. I spoke again with Case Management, where we still do not have any answer back from insurance, but hopefully will soon. His blood sugar was 163 today and this will need to be monitored. His sodium unfortunately went further down to 132, and his white count has came up to 12.7. Some of that is likely surgical response as well, but we will need to correct his hyponatremia before it starts to get worse. We will defer to the management of our Hospitalist Team for that purpose as well as the blood sugar management, and we will communicate this with the nurses. He also would likely benefit from having a bedside commode, so we will discuss the nursing staff as well for placement of that in the room since he has not had a bowel movement since Saturday. We will also perform a lower extremity Doppler to evaluate for possible DVT given his immobility and we will add a MiraLAX daily for the purpose of encouraging bowel movements. Job ID: [id number]
[2018-09-05] MEDS: Acetaminophen 500 MG TAB PO PRN ×4 (00:03→18:23)
[2018-09-05] MEDS: Ketorolac Tromethamine 30 MG/ML VIAL IVP PRN ×4 (00:03→18:23)
[2018-09-05] MEDS: Dexamethasone 4 mg/ml Vial SLOW IVP SCH ×4 (00:04→18:23)
[2018-09-05] MEDS: Zolpidem Tartrate 5 MG TAB PO PRN (00:32)
[2018-09-05] MEDS: tiZANidine HCl 4 MG TAB PO PRN ×4 (00:32→18:32)
[2018-09-05] MEDS: HYDROmorphone 10 mg/100 ml CADD IV PRN ×2 (03:12→12:43)
[2018-09-05] MEDS: CEFAZOLIN 2 GM in Premix Bag 1 BAG IVPB SCH ×3 (05:49→21:28)
[2018-09-05] MEDS: Lorazepam 1 MG TAB PO PRN ×4 (05:50→18:23)
[2018-09-05] MEDS: Polyethylene Glycol 3350 17 GM Packet PO SCH (08:33)
[2018-09-05] MEDS: Pantoprazole 40 MG VIAL IVP SCH (08:36)
[2018-09-05] MEDS: Amlodipine 5 MG TAB PO SCH (08:38)
[2018-09-05] MEDS: Gabapentin 300 MG CAP PO SCH ×3 (08:39→21:27)
[2018-09-05] MEDS ORDERED: cloNIDine 0.1 MG TAB PO PRN (08:47)
[2018-09-05 09:45] LABS: #Lymphocytes 1.2 thou/uL (1.20-3.40); #Monocytes 0.8 thou/uL (0.11-0.59); #Neutrophils 8.4 thou/uL (1.40-6.50); %Basophils 0.1 % (0.0-1.0); %Eosinophils 0.3 % (0.0-10.0); %Lymphocytes 11.3 % (21.0-51.0); %Monocytes 7.2 % (0.0-10.0); Hemoglobin 12.8 g/dL (14.0-18.0); Mean Corpuscular Hemoglobin 31.6 pg (27.0-31.0); Mean Corpuscular Volume 95.6 fL (78.0-98.0); Platelet Count 335 thou/uL (130-400); RBC Distribution Width 12.1 % (11.5-14.5); Red Blood Cell (RBC) Count 4.04 mill/uL (4.70-6.10); White Blood Cell (WBC) Count 10.4 thou/uL (4.8-10.8)
--- NOTE | 2018-09-05 09:56 | PRG ---
DATE OF SERVICE: 09/05/2018 Mr. Amado is continuing to make slow but certain progress. Yesterday, he was working with Physical Therapy, using a walker and mobilized not only in the room, but out to the hallway and back. He continues to report incisional pain. His incision is dry without any significant drainage at this point. His appetite is robust. I have set out 3 goals today for him, the first of which is a transition from his HEEL CUTTER to oral form of medication. The second is to remove the Arreola catheter as this has been in several days now. My concern for urinary tract infection risk is high. The third is to be sure that he gets up at least to the chair 3 times a day. I have also encouraged him to continue to mobilize with Physical Therapy and do so aggressively. We continue to await for final word from his insurance company with respect to disposition for rehab. I still believe that is by far the best case scenario for him giving his weakness as well as propensity for re-injury should he not be placed in a safe environment. Job ID: [id number]
[2018-09-05 10:04] LABS: Anion Gap 14 mmol/L (10-20); BUN (Urea Nitrogen) 14 mg/dL (8.4-25.7); Calc. Creatinine Clearance 182 mL/min (70-130); Calcium 8.9 mg/dL (7.8-10.44); Carbon Dioxide 27 mmol/L (22-29); Chloride 95 mmol/L (98-107); Estimated GFR-MDRD Greater than 90; Glucose 140 mg/dL (70-105); Potassium 4.7 mmol/L (3.5-5.1); Sodium 131 mmol/L (136-145)
[2018-09-05] MEDS: Nicotine 21 MG PATCH TD SCH (11:46)
[2018-09-05] MEDS: fentaNYL 100 mcg/hour Patch TD SCH (12:40)
[2018-09-05] MEDS: Sodium Chloride 0.9% 1,000 ML IV SCH (12:41)
--- NOTE | 2018-09-05 13:34 | PDOC.PN ---
- Subjective Encounter Start Date: 09/05/18 Encounter Start Time: 13:32 Subjective: feels about the same and c/o persistant weakness to legs & hands -: worried about jack stool & urine incontinenec -: at bedside and care discussed - Objective MAR Reviewed: Yes Vital Signs & Weight: Vital Signs (12 hours) Temp Pulse Resp BP BP Pulse Ox 09/05/18 08:47 67 20 09/05/18 08:38 69 145/78 H 09/05/18 03:30 98.1 F 70 18 137/85 95 Weight Weight 225 lb 15.581 oz Most Recent Monitor Data Heart Rate from ECG 78 NIBP 146/83 NIBP BP-Mean 104 Respiration from ECG 17 SpO2 93 I&O: 09/04/18 09/05/18 09/06/18 06:59 06:59 06:59 Intake Total 4690 4720 Output Total 2600 6075 Balance 2090 -1355 Result Diagrams: 09/05/18 09:27 09/05/18 09:27 Phys Exam - Physical Examination Constitutional: NAD multiple drinks on table including iced tea,water,coffee,sodas etc HEENT: PERRLA, moist MMs, sclera anicteric, oral pharynx no lesions Neck: no JVD Respiratory: no wheezing, no rales, no rhonchi, clear to auscultation bilateral Cardiovascular: RRR, no significant murmur Gastrointestinal: soft, non-tender, no distention, positive bowel sounds Musculoskeletal: no edema, pulses present weakness to b/l legs & hands. Psychiatric: normal affect, A&O x 3 Dx/Plan (1) Hyponatremia Code(s): E87.1 - HYPO-OSMOLALITY AND HYPONATREMIA Status: Acute (2) HTN (hypertension) Code(s): I10 - ESSENTIAL (PRIMARY) HYPERTENSION Status: Acute Comment: Likely due to pain (3) Cervical post-laminectomy syndrome Status: Acute (4) Smoking Code(s): F17.200 - NICOTINE DEPENDENCE, UNSPECIFIED, UNCOMPLICATED Status: Acute - Plan plan discussed w/ family, DVT proph w/SCDs sodium still low.suspect exceessive fluid intake.will start fluid restricti -: norvasc added yesterday for BP running high.monito.add prn clonidine -: pain control and rehab per Primary team -: leucocytosis improved. no fever -: am labs.IM team will follow * . Review of Systems - Review of Systems Constitutional: weakness, malaise. negative: fever, chills, sweats, other ENT: negative: Ear Pain, Ear Discharge, Nose Pain, Nose Discharge, Nose Congestion, Mouth Pain, Mouth Swelling, Throat Pain, Throat Swelling, Other Respiratory: negative: Cough, Dry, Shortness of Breath, Hemoptysis, SOB with Excertion, Pleuritic Pain, Sputum, Wheezing Cardiovascular: negative: chest pain, palpitations, orthopnea, paroxysmal nocturnal dyspnea, edema, light headedness, other Gastrointestinal: negative: Nausea, Vomiting, Abdominal Pain, Diarrhea, Constipation, Melena, Hematochezia, Other Genitourinary: negative: Dysuria, Frequency, Incontinence, Hematuria, Retention , Other Musculoskeletal: negative: Neck Pain, Shoulder Pain, Arm Pain, Back Pain, Hand Pain, Leg Pain, Foot Pain, Other Skin: negative: Rash, Lesions, Ganesh, Bruising, Other Neurological: Weakness, Numbness, Incoordination - Medications/Allergies Allergies/Adverse Reactions: Allergies Allergy/AdvReac Type Severity Reaction Status Date / Time No Known Allergies Allergy Unverified 08/21/18 14:35 Medications: Current Medications Acetaminophen (Tylenol) 1,000 mg PO Q6H PRN PRN Reason: Headache/Fever or Pain Last Admin: 09/05/18 11:33 Dose: 1,000 mg Al Hydroxide/Mg Hydroxide (Maalox) 30 ml PO Q4H PRN PRN Reason: Indigestion Albuterol/Ipratropium (Duoneb) 3 ml NEB [id number] [facility] Last Admin: 09/05/18 08:47 Dose: 3 ml Amlodipine Besylate (Norvasc) 2.5 mg PO DAILY [facility] Last Admin: 09/05/18 08:38 Dose: 2.5 mg Bisacodyl (Dulcolax) [address] Q12H PRN PRN Reason: Constipation Clonidine (Catapres) 0.1 mg PO Q4H PRN PRN Reason: SBP>150 Dexamethasone (Decadron) 4 mg SLOW IVP Q6HR [facility] Last Admin: 09/05/18 11:33 Dose: 4 mg Diphenhydramine HCl (Benadryl) 25 mg IVP Q3H PRN PRN Reason: Itching Diphenhydramine HCl (Benadryl) 25 mg PO Q3H PRN PRN Reason: Itching Diphenhydramine HCl (Benadryl) 25 mg IM Q3H PRN PRN Reason: Itching Fentanyl (Duragesic) 100 mcg TD Q3D [facility] Last Admin: 09/05/18 12:40 Dose: 100 mcg Gabapentin (Neurontin) 300 mg PO TID [facility] Last Admin: 09/05/18 08:39 Dose: 300 mg Hydromorphone HCl (Dilaudid Cadd) 0 mg IV INF PRN PRN Reason: Pain Last Admin: 09/05/18 12:43 Dose: 10 mg Cefazolin Sodium/Dextrose 2 gm (/ Device) 50 mls @ 100 mls/hr IVPB Q8HR [facility] Last Admin: 09/05/18 05:49 Dose: 50 mls Sodium Chloride (Normal Saline 0.9%) 1,000 mls @ 60 mls/hr IV .[id number] [facility] Ketorolac Tromethamine (Toradol) 30 mg IVP Q6H PRN PRN Reason: Pain Last Admin: 09/05/18 11:33 Dose: 30 mg Lorazepam (Ativan) 0.5 mg PO Q6H PRN PRN Reason: Anxiety Last Admin: 09/05/18 11:33 Dose: 0.5 mg Magnesium Hydroxide (Milk Of Magnesium) 30 ml PO Q12H PRN PRN Reason: Constipation Miscellaneous Information (Communication Order-Pharmacy) 1 each FS ASDIR [facility] Naloxone HCl (Narcan) 0.2 mg IV Q5MIN PRN PRN Reason: Opiate Reversal Nicotine (Nicoderm Patch) 21 mg TD Q24HR [facility] Last Admin: 09/05/18 11:46 Dose: 21 mg Ondansetron HCl (Zofran) 4 mg IVP Q6H PRN PRN Reason: Nausea/Vomiting Pantoprazole Sodium (Protonix) 40 mg IVP DAILY [facility] Last Admin: 09/05/18 08:36 Dose: 40 mg Polyethylene Glycol (Miralax) 17 gm PO DAILY [facility] Last Admin: 09/05/18 08:33 Dose: Not Given Promethazine HCl (Phenergan) 12.5 mg IM Q4H PRN PRN Reason: Nausea/Vomiting Sodium Biphosphate/Sodium Phosphate (Fleet Enema) [address] ONE PRN PRN Reason: Constipation Stop: 09/30/18 01:30 Sodium Chloride (Flush - Normal Saline) 10 ml IVF PRN PRN PRN Reason: Saline Flush Last Admin: 09/01/18 12:48 Dose: 10 ml Tizanidine HCl (Zanaflex) 4 mg PO Q6H PRN PRN Reason: Muscle Spasm Last Admin: 09/05/18 12:51 Dose: 4 mg Zolpidem Tartrate (Ambien) 5 mg PO HSPRN PRN PRN Reason: Insomnia Last Admin: 09/05/18 00:32 Dose: 5 mg
[2018-09-05 18:04] LABS: Anion Gap 11 mmol/L (10-20); BUN (Urea Nitrogen) 17 mg/dL (8.4-25.7); Calc. Creatinine Clearance 170 mL/min (70-130); Calcium 9.1 mg/dL (7.8-10.44); Carbon Dioxide 31 mmol/L (22-29); Chloride 94 mmol/L (98-107); Estimated GFR-MDRD Greater than 90; Glucose 131 mg/dL (70-105); Potassium 4.8 mmol/L (3.5-5.1); Sodium 131 mmol/L (136-145)
[2018-09-05] MEDS: Amitriptyline HCl 25 MG TAB PO SCH (21:27)
[2018-09-06] MEDS: HYDROmorphone 10 mg/100 ml CADD IV PRN (00:35)
[2018-09-06] MEDS: Dexamethasone 4 mg/ml Vial SLOW IVP SCH ×4 (00:35→18:15)
[2018-09-06] MEDS: tiZANidine HCl 4 MG TAB PO PRN ×4 (00:39→18:53)
[2018-09-06 04:40] LABS: #Lymphocytes 1.2 thou/uL (1.20-3.40); #Monocytes 1.2 thou/uL (0.11-0.59); #Neutrophils 11.6 thou/uL (1.40-6.50); %Basophils 0.3 % (0.0-1.0); %Eosinophils 0.2 % (0.0-10.0); %Lymphocytes 8.6 % (21.0-51.0); %Monocytes 8.2 % (0.0-10.0); %Neutrophils 82.7 % (42.0-75.0); Hemoglobin 12.7 g/dL (14.0-18.0); Mean Corpuscular HGB CONC 32.9 g/dL (32.0-36.0); Mean Corpuscular Hemoglobin 31.4 pg (27.0-31.0); Mean Corpuscular Volume 95.5 fL (78.0-98.0); Mean Platelet Volume 6.6 fL (7.4-10.4); Platelet Count 348 thou/uL (130-400); RBC Distribution Width 12.1 % (11.5-14.5); Red Blood Cell (RBC) Count 4.05 mill/uL (4.70-6.10); White Blood Cell (WBC) Count 14.1 thou/uL (4.8-10.8)
[2018-09-06 04:59] LABS: Anion Gap 12 mmol/L (10-20); BUN (Urea Nitrogen) 14 mg/dL (8.4-25.7); Calc. Creatinine Clearance 179 mL/min (70-130); Calcium 8.9 mg/dL (7.8-10.44); Carbon Dioxide 30 mmol/L (22-29); Chloride 95 mmol/L (98-107); Estimated GFR-MDRD Greater than 90; Glucose 167 mg/dL (70-105); Potassium 4.5 mmol/L (3.5-5.1); Sodium 132 mmol/L (136-145)
[2018-09-06] MEDS: Sodium Chloride 0.9% 1,000 ML IV SCH (05:15)
[2018-09-06] MEDS: Acetaminophen 500 MG TAB PO PRN ×2 (05:42→12:00)
[2018-09-06] MEDS: Ketorolac Tromethamine 30 MG/ML VIAL IVP PRN ×2 (05:42→12:00)
[2018-09-06] MEDS: CEFAZOLIN 2 GM in Premix Bag 1 BAG IVPB SCH ×2 (05:42→14:35)
--- NOTE | 2018-09-06 08:01 | PRG ---
DATE OF SERVICE: 09/06/2018 SUBJECTIVE: I saw Genaro Amado in his hospital room this morning. He has had a lot of anxiety pain and neurologic dysfunction and that got him down recently. However, today tells me his spirits are up. When the Arreola was out yesterday, he was able to feel the urge to urinate. He was able to start his urinary stream. He felt the flow. Stop in the urinary stream took quite a bit of effort and was not normal, but the fact that he could get some of the urinary function independently was quite a relief to him. His motor function in his extremities is improving. He is still not steady on his feet, but looks forward to inpatient rehabilitation. I do not see any fevers recorded. Blood pressures have been in the 140s to 150s. His dressing is dry this morning, which is an improvement. There is upper motor neuron weakness in the upper and lower extremities. This seems to be improved compared to previous notes. PLAN: Mr. Amado to be transferred to inpatient rehabilitation. Once those arrangements are made, he can move. He is currently on a [employer] for pain control. I anticipate a transfer in the early part of this coming week. Job ID: [id number]
[2018-09-06] MEDS: Gabapentin 300 MG CAP PO SCH ×3 (09:18→20:42)
[2018-09-06] MEDS: Amlodipine 5 MG TAB PO SCH (09:18)
[2018-09-06] MEDS: Pantoprazole 40 MG VIAL IVP SCH (09:18)
[2018-09-06] MEDS: Polyethylene Glycol 3350 17 GM Packet PO SCH (09:24)
[2018-09-06] MEDS: Lorazepam 1 MG TAB PO PRN ×2 (09:42→20:41)
[2018-09-06] MEDS: Nicotine 21 MG PATCH TD SCH (11:07)
[2018-09-06] MEDS: HYDROcodone/Acetaminophen 10/325 mg Tablet PO PRN ×2 (12:08→20:42)
--- NOTE | 2018-09-06 16:54 | PDOC.EVN ---
Event Note - Event Note Event Note: Chart reviewed. sodium better.cont fluid restriction.Consult nephrology if he needs [place] for SIADH
[2018-09-06] MEDS: diphenhydrAMINE 25 MG CAP PO PRN (20:41)
[2018-09-06] MEDS: Amitriptyline HCl 25 MG TAB PO SCH (20:41)
[2018-09-06] MEDS ORDERED: Cephalexin 250 MG CAP PO SCH (21:00)
[2018-09-06] MEDS ORDERED: Dexamethasone 4 MG TAB PO SCH (23:59)
[2018-09-07] MEDS: Cephalexin 250 MG CAP PO SCH ×4 (00:22→17:48)
--- NOTE | 2018-09-07 02:19 | CON ---
DATE OF CONSULTATION: CONSULTING PHYSICIAN: Sarita Vincent MD REQUESTING PHYSICIAN: Dr. Corona. REASON FOR CONSULTATION: Hyponatremia. IMPRESSION: 1. Hyponatremia. This seems to be chronic, query type, possibly syndrome of inappropriate antidiuretic hormone secretion in the context of pain. PLAN: 1. The safest thing to do for now is free water restriction depending when the type of hyponatremia is identified. 2. Send urine for sodium and osmolality. 3. Check TSH. HISTORY OF PRESENT ILLNESS: Is that of a 52-year-old gentleman who recently had a neck surgery, continued to have progressively worsening pain and weakness of upper and lower extremities. Reimaging did reveal central disk herniation with spondylolisthesis, epidural swelling, edema and possible cord infection with severe compression at C7-T1 level. The patient noted with low sodium and felt the need for renal consultation. Review of this patient's previous record did show the patient has had low sodium for sometime. As a result of this, decision has been taken to involve renal in the management of this case. Patient currently on free water restriction, though the compliance with this is questionable. PAST MEDICAL HISTORY: Significant for depression. SOCIAL HISTORY: Significant for occasional use of marijuana. ALLERGIES: NO KNOWN DRUG ALLERGIES. REVIEW OF SYSTEMS: Except as documented in the body of the history. PHYSICAL EXAMINATION: GENERAL: The patient was found not to be in any obvious distress, noted with the following vital signs, afebrile, temperature 98.7, pulse 74, respiratory rate of 16, O2 saturations of 95%, blood pressure 128/74. HEENT: Unremarkable. CARDIOVASCULAR: First and second heart sounds were heard. RESPIRATORY: Clear to auscultation. DIGESTIVE: Revealed a benign abdomen. Positive bowel sounds. EXTREMITIES: No peripheral edema. SKIN: No new gross rash. LYMPHATICS: No peripheral lymphadenopathy. SUMMARY: A 52-year-old gentleman with chronic hyponatremia. Thank you for this consultation. We will follow with you. Job ID: [id number]
[2018-09-07] MEDS: tiZANidine HCl 4 MG TAB PO PRN ×4 (03:01→21:01)
[2018-09-07 05:09] LABS: #Lymphocytes 1.3 thou/uL (1.20-3.40); #Monocytes 1.5 thou/uL (0.11-0.59); #Neutrophils 12.8 thou/uL (1.40-6.50); %Basophils 0.1 % (0.0-1.0); %Eosinophils 0.3 % (0.0-10.0); %Lymphocytes 8.6 % (21.0-51.0); %Monocytes 9.3 % (0.0-10.0); %Neutrophils 81.8 % (42.0-75.0); Hemoglobin 11.2 g/dL (14.0-18.0); Mean Corpuscular HGB CONC 32.3 g/dL (32.0-36.0); Mean Corpuscular Hemoglobin 30.9 pg (27.0-31.0); Mean Corpuscular Volume 95.6 fL (78.0-98.0); Mean Platelet Volume 6.9 fL (7.4-10.4); Platelet Count 353 thou/uL (130-400); RBC Distribution Width 12.1 % (11.5-14.5); Red Blood Cell (RBC) Count 3.64 mill/uL (4.70-6.10); White Blood Cell (WBC) Count 15.7 thou/uL (4.8-10.8)
[2018-09-07] MEDS: HYDROcodone/Acetaminophen 10/325 mg Tablet PO PRN ×3 (05:14→17:49)
[2018-09-07] MEDS: Dexamethasone 4 MG TAB PO SCH ×3 (05:16→17:49)
[2018-09-07 05:33] LABS: Anion Gap 10 mmol/L (10-20); BUN (Urea Nitrogen) 12 mg/dL (8.4-25.7); Calc. Creatinine Clearance 194 mL/min (70-130); Calcium 8.5 mg/dL (7.8-10.44); Carbon Dioxide 31 mmol/L (22-29); Chloride 94 mmol/L (98-107); Estimated GFR-MDRD Greater than 90; Glucose 187 mg/dL (70-105); Potassium 4.4 mmol/L (3.5-5.1); Sodium 131 mmol/L (136-145)
[2018-09-07] MEDS: Pantoprazole 40 MG VIAL IVP SCH (08:36)
[2018-09-07] MEDS: Gabapentin 300 MG CAP PO SCH ×3 (08:37→21:00)
[2018-09-07] MEDS: Amlodipine 5 MG TAB PO SCH (08:38)
[2018-09-07] MEDS: Lorazepam 1 MG TAB PO PRN ×3 (08:38→21:00)
[2018-09-07] MEDS: Polyethylene Glycol 3350 17 GM Packet PO SCH (08:39)
--- NOTE | 2018-09-07 10:59 | PRG ---
DATE OF SERVICE: 09/07/2018 SUBJECTIVE: I saw Mr. Amado in his hospital room this morning. Nursing reported that he had a bowel movement this morning. He is able to feel a bowel movement and control it. He had sphincter function. Mr. Amado confirms this and is quite happy about his trip to the bathroom this morning. Yesterday, he was transitioned off IV pain medication to oral medication. He complains that the time between his hydrocodone/oxycodone doses are 8 hours and he cannot tolerate that. I do not see any fevers recorded on his vital signs. Blood pressures have been in the 140s. Neurological function is stable from yesterday. Our plan is to move Mr. Amado to inpatient rehabilitation once insurance approval is obtained. I doubt that will happen on Saturday. Now that he is on oral analgesics and transcutaneous analgesia, I think the transition would be easier for him. I will defer any pain management issues to our colleagues in Anesthesia. Job ID: [id number]
[2018-09-07] MEDS: Nicotine 21 MG PATCH TD SCH (11:06)
--- NOTE | 2018-09-07 12:37 | PDOC.PN ---
- Subjective Encounter Start Date: 09/07/18 Encounter Start Time: 12:35 Subjective: denies any new symptoms -: some of bowel and bladder function coming better -: able to walk w walker.pain not adequately controlled - Objective MAR Reviewed: Yes Vital Signs & Weight: Vital Signs (12 hours) Temp Pulse Resp BP BP Pulse Ox 09/07/18 11:42 98.5 F 85 18 129/84 94 L 09/07/18 08:38 87 146/85 H 09/07/18 08:36 87 16 92 L 09/07/18 07:59 98.6 F 71 18 146/85 H 95 09/07/18 04:00 98.6 F 83 18 134/84 95 Weight Weight 225 lb 15.581 oz Most Recent Monitor Data Heart Rate from ECG 78 NIBP 146/83 NIBP BP-Mean 104 Respiration from ECG 17 SpO2 93 I&O: 09/06/18 09/07/18 09/08/18 06:59 06:59 06:59 Intake Total 2860 Output Total 3000 3500 Balance -3000 -640 Result Diagrams: 09/07/18 04:42 09/07/18 04:42 Additional Labs: Laboratory Tests 08/30/18 09/04/18 09/05/18 17:13 06:18 09:27 Sodium 134 L 132 L 131 L 09/05/18 09/06/18 09/07/18 17:39 04:31 04:42 Sodium 131 L 132 L 131 L Phys Exam - Physical Examination Constitutional: NAD refuses exam refuses exam refuses exam refuses exam refuses exam refuses exam refuses exam Psychiatric: A&O x 3 agiated and angry Dx/Plan (1) Hyponatremia Code(s): E87.1 - HYPO-OSMOLALITY AND HYPONATREMIA Status: Acute Comment: Cont Free H2O restriction. (2) HTN (hypertension) Code(s): I10 - ESSENTIAL (PRIMARY) HYPERTENSION Status: Acute Comment: Likely due to pain (3) Cervical post-laminectomy syndrome Status: Acute (4) Smoking Code(s): F17.200 - NICOTINE DEPENDENCE, UNSPECIFIED, UNCOMPLICATED Status: Acute - Plan PT/OT, DVT proph w/SCDs BP still high.increase amlodipine.monitor. -: Sodium stable.being followed by nephrology -: Pt refuses exam & doesnot want"multiple doctors messing up his care" -: HD stable. -: Will sign off.Pls call with Qs.OP Nephrology F/U advised * . Review of Systems - Review of Systems Constitutional: weakness, malaise Eyes: negative: Pain, Vision Change, Conjunctivae Inflammation, Eyelid Inflammation, Redness, Other ENT: negative: Ear Pain, Ear Discharge, Nose Pain, Nose Discharge, Nose Congestion, Mouth Pain, Mouth Swelling, Throat Pain, Throat Swelling, Other Respiratory: negative: Cough, Dry, Shortness of Breath, Hemoptysis, SOB with Excertion, Pleuritic Pain, Sputum, Wheezing Cardiovascular: negative: chest pain, palpitations, orthopnea, paroxysmal nocturnal dyspnea, edema, light headedness, other Gastrointestinal: negative: Nausea, Vomiting, Abdominal Pain, Diarrhea, Constipation, Melena, Hematochezia, Other Genitourinary: negative: Dysuria, Frequency, Incontinence, Hematuria, Retention , Other Musculoskeletal: negative: Neck Pain, Shoulder Pain, Arm Pain, Back Pain, Hand Pain, Leg Pain, Foot Pain, Other Neurological: Weakness, Numbness, Incoordination - Medications/Allergies Allergies/Adverse Reactions: Allergies Allergy/AdvReac Type Severity Reaction Status Date / Time No Known Allergies Allergy Unverified 08/21/18 14:35 Medications: Current Medications Acetaminophen (Tylenol) 1,000 mg PO Q6H PRN PRN Reason: Headache/Fever or Pain Last Admin: 09/06/18 12:00 Dose: 1,000 mg Hydrocodone Bitart/Acetaminophen ([place] 10/325) 2 tab PO Q6H PRN PRN Reason: Moderate Pain (4-6) Last Admin: 09/07/18 11:07 Dose: 2 tab Al Hydroxide/Mg Hydroxide (Maalox) 30 ml PO Q4H PRN PRN Reason: Indigestion Albuterol/Ipratropium (Duoneb) 3 ml NEB [id number] [facility] Last Admin: 09/07/18 08:36 Dose: 3 ml Amitriptyline HCl (Elavil) 25 mg PO HS [facility] Last Admin: 09/06/18 20:41 Dose: 25 mg Amlodipine Besylate (Norvasc) 5 mg PO DAILY [facility] Bisacodyl (Dulcolax) 10 mg MO Q12H PRN PRN Reason: Constipation Cephalexin (Keflex) 500 mg PO Q6HR [facility] Last Admin: 09/07/18 11:07 Dose: 500 mg Clonidine (Catapres) 0.1 mg PO Q4H PRN PRN Reason: SBP>150 Dexamethasone (Decadron) 2 mg PO Q6HR [facility] Stop: 09/09/18 02:00 Last Admin: 09/07/18 11:06 Dose: 2 mg Dexamethasone (Decadron) 2 mg PO Q8HR [facility] Stop: 09/11/18 02:00 Dexamethasone (Decadron) 2 mg PO BID [facility] Stop: 09/13/18 02:00 Dexamethasone (Decadron) 2 mg PO QAM [facility] Stop: 09/14/18 12:00 Diphenhydramine HCl (Benadryl) 25 mg IVP Q3H PRN PRN Reason: Itching Diphenhydramine HCl (Benadryl) 25 mg PO Q3H PRN PRN Reason: Itching Last Admin: 09/06/18 20:41 Dose: 25 mg Diphenhydramine HCl (Benadryl) 25 mg IM Q3H PRN PRN Reason: Itching Fentanyl (Duragesic) 100 mcg TD Q3D [facility] Last Admin: 09/05/18 12:40 Dose: 100 mcg Gabapentin (Neurontin) 600 mg PO TID [facility] Last Admin: 09/07/18 08:37 Dose: 600 mg Lorazepam (Ativan) 0.5 mg PO Q6H PRN PRN Reason: Anxiety Last Admin: 09/07/18 08:38 Dose: 0.5 mg Magnesium Hydroxide (Milk Of Magnesium) 30 ml PO Q12H PRN PRN Reason: Constipation Miscellaneous Information (Communication Order-Pharmacy) 1 each FS ASDIR [facility] Naloxone HCl (Narcan) 0.2 mg IV Q5MIN PRN PRN Reason: Opiate Reversal Nicotine (Nicoderm Patch) 21 mg TD Q24HR [facility] Last Admin: 09/07/18 11:06 Dose: 21 mg Ondansetron HCl (Zofran) 4 mg IVP Q6H PRN PRN Reason: Nausea/Vomiting Pantoprazole Sodium (Protonix) 40 mg IVP DAILY [facility] Last Admin: 09/07/18 08:36 Dose: 40 mg Polyethylene Glycol (Miralax) 17 gm PO DAILY [facility] Last Admin: 09/07/18 08:39 Dose: 17 gm Promethazine HCl (Phenergan) 12.5 mg IM Q4H PRN PRN Reason: Nausea/Vomiting Sodium Biphosphate/Sodium Phosphate (Fleet Enema) 133 ml MO ONE PRN PRN Reason: Constipation Stop: 09/30/18 01:30 Sodium Chloride (Flush - Normal Saline) 10 ml IVF PRN PRN PRN Reason: Saline Flush Last Admin: 09/01/18 12:48 Dose: 10 ml Tizanidine HCl (Zanaflex) 4 mg PO Q6H PRN PRN Reason: Muscle Spasm Last Admin: 09/07/18 08:37 Dose: 4 mg Zolpidem Tartrate (Ambien) 5 mg PO HSPRN PRN PRN Reason: Insomnia Last Admin: 09/05/18 00:32 Dose: 5 mg
[2018-09-07] MEDS: Amitriptyline HCl 25 MG TAB PO SCH (21:00)
[2018-09-07] MEDS: diphenhydrAMINE 25 MG CAP PO PRN (21:01)
[2018-09-08] MEDS: Cephalexin 250 MG CAP PO SCH ×3 (00:06→12:11)
[2018-09-08] MEDS: Dexamethasone 4 MG TAB PO SCH ×3 (00:07→12:12)
[2018-09-08] MEDS: HYDROcodone/Acetaminophen 10/325 mg Tablet PO PRN ×3 (00:08→12:15)
[2018-09-08] MEDS: Lorazepam 1 MG TAB PO PRN ×3 (03:02→15:03)
[2018-09-08] MEDS: diphenhydrAMINE 25 MG CAP PO PRN (03:02)
[2018-09-08] MEDS: tiZANidine HCl 4 MG TAB PO PRN ×3 (03:02→15:03)
[2018-09-08 05:24] LABS: Anion Gap 9 mmol/L (10-20); BUN (Urea Nitrogen) 13 mg/dL (8.4-25.7); Calc. Creatinine Clearance 197 mL/min (70-130); Calcium 8.5 mg/dL (7.8-10.44); Carbon Dioxide 32 mmol/L (22-29); Chloride 95 mmol/L (98-107); Estimated GFR-MDRD Greater than 90; Glucose 153 mg/dL (70-105); Potassium 4.2 mmol/L (3.5-5.1); Sodium 132 mmol/L (136-145)
[2018-09-08 05:37] LABS: Band 2 % (5-11); Hemoglobin 11.6 g/dL (14.0-18.0); Lymphocytes 10 % (21-51); MDiff Complete? YES; Mean Corpuscular Hemoglobin 30.8 pg (27.0-31.0); Mean Corpuscular Volume 96.3 fL (78.0-98.0); Mean Platelet Volume 6.7 fL (7.4-10.4); Monocytes 11 % (0-10); Neutrophil 77 % (42-75); Platelet Count 370 thou/uL (130-400); RBC Distribution Width 12.1 % (11.5-14.5); Red Blood Cell (RBC) Count 3.77 mill/uL (4.70-6.10); White Blood Cell (WBC) Count 17.5 thou/uL (4.8-10.8)
[2018-09-08] MEDS: Gabapentin 300 MG CAP PO SCH ×2 (08:34→15:03)
[2018-09-08] MEDS ORDERED: Amlodipine 5 MG TAB PO SCH (09:00)
[2018-09-08] MEDS: Nicotine 21 MG PATCH TD SCH (12:10)
[2018-09-08] MEDS: Polyethylene Glycol 3350 17 GM Packet PO SCH (12:11)
[2018-09-08 12:16] VITALS: BP 129/81; TEMP 98.6
[2018-09-08] MEDS: fentaNYL 100 mcg/hour Patch TD SCH (12:36)
[2018-09-09] MEDS ORDERED: Dexamethasone 4 MG TAB PO SCH (06:00)
--- NOTE | 2018-09-09 13:39 | DIS ---
DATE OF ADMISSION: 08/30/2018 DATE OF DISCHARGE: 09/08/2018 Mr. Amado is a 52-year-old man, who was admitted to [facility] by Dr. Javier Portillo on August 30, 2018, and then subsequently discharged by Dr. Rafeal Bower on September 08, 2018, to inpatient rehab. His admission diagnosis was progression of cervical myelopathy symptoms and status post thoracic decompression and fusion. His discharge diagnosis is the same. Consultations were ordered during his hospital stay to Physical Medicine and Rehab, Pulmonary Critical Care, [facility] Service, Case Management and Inpatient Rehab. His admission condition was poor. Discharge condition was improved. Mr. Amado's hospital course was complicated by severe myelopathic symptoms and immobility. He presented to the emergency department and ultimately was taken to the OR essentially immediately and then admitted to the ICU for 48 hours. He was then transitioned to the surgical floor with aggressive physical therapy and occupational therapy, where he ambulated slightly in the hallways and in his room. He did have a Arreola in for extended period of time but then slowly regained bladder and bowel control to a point, where this was discontinued. He then was discharged to Inpatient Rehab for continued aggressive therapy with planned outpatient followup in the clinic. Job ID: [id number]
[2018-09-11] MEDS ORDERED: Dexamethasone 4 MG TAB PO SCH (09:00)
[2018-09-13] MEDS ORDERED: Dexamethasone 4 MG TAB PO SCH (09:00)
== END 2018-09-08 16:04 | DRG 459 ==
LOC: ERS 15:40 → CCU 23:34 → SURG B 09-02 20:24
PROVIDERS: ADMIT Surgery; ATTEND Surgery
PROC: 0RG2071 Fusion of 2 or more Cervical Vertebral Joints with Autologous Tissue Substitute, Posterior Approach, Posterior Column, Open Approach (ICD-10-PCS; principal; 2018-08-31)
PROC: 0RG6071 Fusion of Thoracic Vertebral Joint with Autologous Tissue Substitute, Posterior Approach, Posterior Column, Open Approach (ICD-10-PCS; 2018-08-31)
PROC: 0RG4071 Fusion of Cervicothoracic Vertebral Joint with Autologous Tissue Substitute, Posterior Approach, Posterior Column, Open Approach (ICD-10-PCS; 2018-08-31)
PROC: 00NW0ZZ Release Cervical Spinal Cord, Open Approach (ICD-10-PCS; 2018-08-31)
PROC: 00NX0ZZ Release Thoracic Spinal Cord, Open Approach (ICD-10-PCS; 2018-08-31)
DX: M50.022 Cervical disc disorder at C5-C6 level with myelopathy (principal); G82.50 Quadriplegia, unspecified; E87.1 Hypo-osmolality and hyponatremia; M96.1 Postlaminectomy syndrome, not elsewhere classified; M48.02 Spinal stenosis, cervical region; R32 Unspecified urinary incontinence; R15.9 Full incontinence of feces; M43.13 Spondylolisthesis, cervicothoracic region; F17.210 Nicotine dependence, cigarettes, uncomplicated; Y83.8 Other surgical procedures as the cause of abnormal reaction of the patient, or of later complication, without mention of misadventure at the time of the procedure
CPT/HCPCS: 36415; 71045; 72125; 72128; 72141; 76000; 80048; 80053; 82805; 83935; 84300; 84443; 85025; 85610; 85730; 93970; 94002; 96374; C1713; C1768; C9113; J0690; J1100; J1200; J1885; J2001; J2250; J2270; J2405; J2704; J3010; J3370; J3490; J7620; J8540; Q0163

== ENCOUNTER 2018-10-28 11:20 | Outpatient (CLI) | payer MEDICARE ==
[2018-10-28 11:45] LABS: #Basophils 0.1 thou/uL (0.0-0.2); #Eosinphils 0.3 thou/uL (0.0-0.7); #Lymphocytes 2.9 thou/uL (1.20-3.40); #Monocytes 0.7 thou/uL (0.11-0.59); #Neutrophils 5.7 thou/uL (1.40-6.50); %Basophils 1.1 % (0.0-1.0); %Eosinophils 2.8 % (0.0-10.0); %Monocytes 7.3 % (0.0-10.0); %Neutrophils 58.8 % (42.0-75.0); Hemoglobin 13.8 g/dL (14.0-18.0); Mean Corpuscular HGB CONC 32.2 g/dL (32.0-36.0); Mean Corpuscular Volume 93.3 fL (78.0-98.0); Mean Platelet Volume 6.6 fL (7.4-10.4); Platelet Count 279 thou/uL (130-400); RBC Distribution Width 13.4 % (11.5-14.5); Red Blood Cell (RBC) Count 4.59 mill/uL (4.70-6.10); White Blood Cell (WBC) Count 9.8 thou/uL (4.8-10.8)
--- NOTE | 2018-10-28 12:01 | RAD ---
Exam: CERVICAL SPINE 3 VIEWS HISTORY: Follow-up. Surgery. Fusion. FINDINGS: Anterior fusion plate at C3, C4, and C5 without perihardware lucency. Posterior fusion hard solis has been placed since the previous CT from 08/30/2018 along the posterior elements at C5, C6, C7, T1, and T2. Chronic changes of the C6 vertebral body have progressed since the previous examinati on. Severe degenerative disc disease at C5-C6 and C6-C7. There is anterolisthesis of C7 upon T1 (8 mm). The degree of anterolisthesis is difficult to compare given differences in technique but may hav e slightly progressed. IMPRESSION: 1. Fusion as above. 2. Spondylolisthesis as above. Transcribed Date/Time: 10/28/2018 12:22 PM
[2018-10-28 12:03] LABS: Anion Gap 14 mmol/L (10-20); BUN (Urea Nitrogen) 7 mg/dL (8.4-25.7); Calc. Creatinine Clearance 0 mL/min (70-130); Calcium 10.1 mg/dL (7.8-10.44); Carbon Dioxide 27 mmol/L (22-29); Chloride 99 mmol/L (98-107); Estimated GFR-MDRD Greater than 90; Glucose 98 mg/dL (70-105); Potassium 4.1 mmol/L (3.5-5.1); Sodium 136 mmol/L (136-145)
== END 2018-10-28 11:21 | disposition home or self-care (01) ==
LOC: SCSRAD 11:20
PROVIDERS: ATTEND Surgery
DX: M50.00 Cervical disc disorder with myelopathy, unspecified cervical region (principal); D64.9 Anemia, unspecified; I10 Essential (primary) hypertension; M43.12 Spondylolisthesis, cervical region; Z98.1 Arthrodesis status; Z79.899 Other long term (current) drug therapy
CPT/HCPCS: 36415; 72040; 80048; 85025

== ENCOUNTER 2019-01-06 11:06 | Outpatient (CLI) | payer MEDICARE ==
--- NOTE | 2019-01-06 13:42 | MRI ---
MRI CERVICAL SPINE WITH AND WITHOUT CONTRAST: 01/06/19 HISTORY: 53-year-old male with ICD-10: M47.12, stenosis of cervical spine with myelopathy. COMPARISON: Noncontrast MRI of 08/30/18. FINDINGS: Again noted is the ACDF hardware (anterior metallic plate and screws) at C3-C4, and C5. Successful an kylosis across the now obliterated disc spaces at C3-4-5. Severe disc space narrowing at C5-6 and C6- 7. There is a new finding of multiple midline laminectomy defects from C5 through C7-T1, relieving th e previously demonstrated severe central spinal canal stenoses at those levels. The cord edema previo usly demonstrated from C7-T1 level to mid T1 level, has improved. There is no syringohydromyelia. The re is no abnormal intramedullary enhancement. There is postsurgical enhancement in the epidural space s and retrospinal soft tissues, related to the recent surgery, at the post surgical levels. The grade I anterolisthesis of C7 on T1 due to facet DJD, is unchanged. There are also bilateral posterior rosa ment screws (presumably with vertical interlocking rods) at all levels from C5 through T2. C1-2: No central stenosis. C2-3: Slight degenerative retrolisthesis of C2 on C3. Mild disc space narrowing. Broad based disc-ost eophytic bar complex encroaches upon the ventral aspect of spinal canal, mildly indenting the spinal cord. Mild to moderate central spinal canal stenosis. Moderate to severe bilateral neural foraminal s tenosis. C3-4: Bony hypertrophy of vertebral bodies results in moderate to severe central spinal canal stenosi s. Prominent bilateral uncinate process osteophytes result in severe bilateral neural foraminal steno sis. C4-5: Moderate central spinal canal stenosis at C4, but generous caliber of spinal canal and thecal s ac at the C4-5 level and C5 level due to the midline laminectomy. Severe right neural foraminal steno sis. Moderate to severe left neural foraminal stenosis. C5-6: Generous caliber of spinal canal and thecal sac. Severe bilateral neural foraminal stenosis. C6-7: Generous caliber of spinal canal and thecal sac. Severe right neural foraminal stenosis. Modera te left neural foraminal stenosis. C7-T1: Generous caliber of spinal canal and thecal sac. Moderate bilateral neural foraminal stenosis. IMPRESSION: 1. Status post recent midline decompressive laminectomies from C5 through C7-T1, relieving the p reviously demonstrated severe central spinal canal stenosis throughout those levels. 2. Recent placement of bilateral posterior element hardware from C5 through T2. 3. Old anterior cervical discectomy and fusion at C3-4-5. 4. Multilevel high grade bilateral neural foraminal stenosis, mostly severe. 5. Central spinal canal stenosis at C2-3. POS: TPC
== END 2019-01-06 11:07 | disposition home or self-care (01) ==
LOC: SCSMRI 11:06
PROVIDERS: ATTEND Surgery
DX: M48.02 Spinal stenosis, cervical region (principal); G95.9 Disease of spinal cord, unspecified; Z98.1 Arthrodesis status
CPT/HCPCS: 72156

== ENCOUNTER 2019-08-02 16:48 | Observation (INO) | payer MEDICARE ==
[2019-08-02] MEDS ORDERED: Acetaminophen 500 MG TAB ONE (17:30)
[2019-08-02] MEDS ORDERED: Ketorolac Tromethamine 30 MG/ML VIAL ONE (17:30)
[2019-08-02 18:33] LABS: Bilirubin Negative (Negative); Blood, Urine Negative (Negative); Clarity Clear (Clear); Glucose, Urine (Dipstick) Normal (Negative); Leukocyte Negative Leu/uL (Negative); Nitrite Negative (Negative); Protein, Urine (Dipstick) Negative (Neg-Trace); Urobilinogen Normal mg/dL (Less than 2)
[2019-08-02] MEDS ORDERED: Lorazepam 1 MG TAB ONE (22:38)
[2019-08-02] MEDS ORDERED: Lorazepam 1 MG TAB PO SCH (22:45)
--- NOTE | 2019-08-02 23:27 | MRI ---
MR the lumbar spine without contrast INDICATION: Gait instability and inability to walk COMPARISON: Prior MR the lumbar spine dated August 07, 2018 TECHNIQUE: Multiplanar multisequence MR images were obtained of lumbar spine without IV contrast. FINDINGS: Bone marrow: There is persistent marrow edema involving the pedicles bilaterally at L5 and S1. There are nondisplaced fractures involving the pedicles of S1 bilaterally. No visible fracture line is seen involving the pedicles of L5. Distal spinal cord and conus: Normal. The conus seen to terminate at L1. Visualized retroperitoneum and paraspinal soft tissues: There is a 2 cm left renal cyst that is stabl e to the prior exam. Vertebral levels: L5-S1: There is a broad-based disc bulge with moderate to severe facet joint degenerative change but no appreciable central canal or neural foraminal narrowing.. L4-5: There is a broad-based disc bulge with facet hypertrophy and loss of disc space height inducing moderate to severe right and moderate left neural foraminal narrowing which is stable L3-4: There is a broad-based disc bulge with moderate facet joint degenerative change inducing mild b ilateral neural foraminal narrowing which is stable. L2-3: There is a broad-based bulge with facet hypertrophy inducing mild bilateral neural foraminal na rrowing which is stable L1-L2: There is a mild broad-based bulge but no appreciable central canal or neural foraminal narrowi ng T12-L1: No appreciable central canal or neuroforaminal narrowing. IMPRESSION: 1. Slightly more prominent marrow edema involving the pedicles bilaterally at L5 and S1. There are vi sible nondisplaced pedicle fractures involving the S1 level bilaterally. No visible pedicle fractures are seen at L5 and is suspicious for stress reaction. 2. No central canal narrowing demonstrated. 3. Stable multilevel neural foraminal narrowing.
[2019-08-03 01:46] LABS: #Basophils 0.1 thou/uL (0.0-0.2); #Eosinphils 0.1 thou/uL (0.0-0.7); #Lymphocytes 3.2 thou/uL (1.20-3.40); #Monocytes 0.8 thou/uL (0.11-0.59); #Neutrophils 4.3 thou/uL (1.40-6.50); %Basophils 0.8 % (0.0-1.0); %Eosinophils 0.9 % (0.0-10.0); %Lymphocytes 38.4 % (21.0-51.0); %Monocytes 9.3 % (0.0-10.0); %Neutrophils 50.6 % (42.0-75.0); Hemoglobin 15.1 g/dL (14.0-18.0); Mean Corpuscular Hemoglobin 32.5 pg (27.0-31.0); Mean Corpuscular Volume 95.6 fL (78.0-98.0); Mean Platelet Volume 7.7 fL (7.4-10.4); Platelet Count 250 thou/uL (130-400); Red Blood Cell (RBC) Count 4.66 mill/uL (4.70-6.10); White Blood Cell (WBC) Count 8.4 thou/uL (4.8-10.8)
[2019-08-03 02:04] LABS: ALT (SGPT) 17 U/L (8-55); AST (SGOT) 20 U/L (5-34); Albumin 4.1 g/dL (3.5-5.0); Alkaline Phosphatase 79 U/L (40-110); Anion Gap 11 mmol/L (10-20); BUN (Urea Nitrogen) 18 mg/dL (8.4-25.7); Bilirubin, Total 0.5 mg/dL (0.2-1.2); CK (CPK) 362 U/L (30-200); Calc. Creatinine Clearance 0 mL/min (70-130); Calcium 9.1 mg/dL (7.8-10.44); Carbon Dioxide 30 mmol/L (22-29); Chloride 98 mmol/L (98-107); Estimated GFR-MDRD Greater than 90; Globulin 2.6 g/dL (2.4-3.5); Glucose 116 mg/dL (70-105); Potassium 4.2 mmol/L (3.5-5.1); Protein, Total 6.7 g/dL (6.0-8.3); Sodium 135 mmol/L (136-145)
[2019-08-03] MEDS ORDERED: HYDROcodone/Acetaminophen 10/325 mg Tablet ONE (03:21)
[2019-08-03 05:39] VITALS: BMI 25.4
--- NOTE | 2019-08-03 07:43 | PRG ---
DATE OF SERVICE: 08/03/2019 This is a chart and imaging review note. I have actually not seen Mr. Amado, but the consultation was for acute worsening since 2:00 a.m. yesterday, August 01, where he had progressive worsening of his bilateral lower extremities. He has reports essentially been having total loss of his bilateral lower extremity function and according to ER physician was in need of tremendous assistance and supporting his weight. For this purpose, stat MRIs were ordered overnight of the entire axial spine. Upon review, there is frankly no compression neither centrally to the spinal cord or cauda equina or to the exiting neural foramina at any location within the cervical, thoracic, or lumbar spine that would reasonably make senses to be a cause for his reported progression. CT brain is ordered as well. This was also reviewed, which again shows similar benign nature. Mr. Amado is known to our practice quite well for posterior cervical decompression last year with deterioration within the first week postop, which required reoperation and intraventricular instrumentation posteriorly at the lower cervical and upper thoracic spines. Ultimately, over time, he made slight neurologic and functional recovery, but never truly normalize. At one point during his followup, he terminated the care with our team and we have actually not had any contact with him since that time until this presentation. My review again his symptoms is reported by the ER physician, his imaging and lab work, I did not see any anatomical or structural issues that would contribute to his current deterioration. We would recommend further workup by primary team and potentially Neurology consult for additional reasons. Job ID: [id number]
--- NOTE | 2019-08-03 08:22 | MRI ---
MRI CERVICAL SPINE WITHOUT CONTRAST: INDICATION: History of leg weakness and difficulty walking. COMPARISON: MRI of the cervical spine with and without contrast dated 01/06/2019. FINDINGS: Motion limits detail on the exam. Again seen is postsurgical change of an ACDF extending from C3 through C4 with laminectomy changes at C5 through C7. There is posterolateral spinal instrumentation extending from C5 through T2. The spinal cord demonstrates a normal signal intensity and contour. There are Modic end plate degenerative changes seen at C2-C3 that appear slightly more pronounced oly n the prior MRI examination. Visualized aspects of the posterior fossa are unremarkable-appearing. The slight anterior translation of C7 on T1 is stable. At C2-C3, there is a stable broad-based bulge without appreciable central canal or neural foraminal n arrowing. At C3-4, there is residual osteophyte complex, but no appreciable central canal. There is stable mod erate bilateral neural foraminal narrowing at C3-4. At C4-5, there is no appreciable osseous central canal. There is stable moderate bilateral neural fo raminal narrowing. At C5-6, there is moderate to severe bilateral neural foraminal narrowing, left greater than right, w hich appears similar to the prior exam. At C6-7, there is some residual uncovertebral hypertrophy and facet joint degenerative change inducin g moderate bilateral neural foraminal narrowing. At C7-T1, there is no appreciable osseous central canal or neural foraminal narrowing. At T1-T2, there is no appreciable central canal or neural foraminal narrowing. IMPRESSION: 1. Stable postoperative changes of the cervical spine. 2. Worsening Modic end plate degenerative change at C2-C3. 3. Stable multilevel neural foraminal narrowing. POS: [facility]
--- NOTE | 2019-08-03 08:30 | CT ---
PRELIMINARY REPORT/[facility]/EMERGENCY AFTER HOURS PROCEDURE: EXAM: CT Head Without Intravenous Contrast. CLINICAL HISTORY: M25 presents to the ED with c/o leg cramping onset today. Pt states his "legs are dying." Pt reports he woke up this morning and could not walk. Pt states he experienced the same symptoms a year ago fol lowing an outpatient neck surgery. Pt states pain has never stopped but was manageable until today. P t denies numbness, tingling, and fever. Pt reports back and hip pain. TECHNIQUE: Axial computed tomography images of the head/brain without intravenous contrast. COMPARISON: None provided. FINDINGS: BRAIN: No acute intraparenchymal hemorrhage. No mass lesion. No CT evidence for acute territorial inf arct. No midline shift or extra-axial collection. VENTRICLES: No hydrocephalus. ORBITS: The orbits are unremarkable. SINUSES AND MASTOIDS: The paranasal sinuses and mastoid air cells are clear. SOFT TISSUES: No significant facial or scalp soft tissue swelling evident. No radiopaque foreign body is seen. BONES: No acute skull fracture. IMPRESSION: No acute intracranial abnormality. ELECTRONICALLY SIGNED BY: Jesus Parks MD Aug 03, 2019 3:48:46 AM CDT This report is intended for review by the ordering physician only, in accordance of law. If you recei ve this report in error, please call [facility] at [phone]. FINAL REPORT EMERGENCY AFTER HOURS CT BRAIN: I agree with the preliminary report given by [facility]. POS: [facility]
--- NOTE | 2019-08-03 08:31 | MRI ---
MRI THORACIC SPINE WITHOUT CONTRAST: INDICATION: History of leg weakness and difficulty walking. COMPARISON: CT of the thoracic spine dated 08/30/2018. FINDINGS: There is mild multilevel Modic end plate degenerative changes. There is posterolateral cervical spin al instrumentation extending down to the T2 vertebral level which is new from the comparison CT exami nation. The slight anterior translation of C7 on T1 is stable-appearing. No acute fracture is demonstrated. No appreciable central canal or neural foraminal narrowing is seen at T1-T2. At T2-T3, there is no appreciable central canal or neural foraminal narrowing. At T3-T4, there is no appreciable central canal or neural foraminal narrowing. At T4-5, there is no appreciable central canal or neural foraminal narrowing. At T5-6, there is no appreciable central canal or neural foraminal narrowing. At T6-7, there is a small left paracentral protrusion, but no appreciable central canal or neural for aminal narrowing. At T7-T8, there is no appreciable central canal or neural foraminal narrowing. At T8-T9, there is no appreciable central canal or neural foraminal narrowing. At T9-T10, there is no appreciable central canal or neural foraminal narrowing. At T10-T11, there is no appreciable central canal or neural foraminal narrowing. At T11-T12, there is no appreciable central canal or neural foraminal narrowing. At T12-L1, there is no appreciable central canal or neural foraminal narrowing. 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 The spinal cord demonstrates normal signal intensity and contour. POS: [facility]
[2019-08-03] MEDS ORDERED: hydrALAZINE 20 MG/ML VIAL SLOW IVP PRN (09:51)
[2019-08-03] MEDS ORDERED: ALPRAZolam 0.5 MG TAB PO PRN ×2 (09:51→10:01)
[2019-08-03] MEDS ORDERED: Acetaminophen 325 MG TAB PO PRN (09:51)
--- NOTE | 2019-08-03 10:09 | HP ---
PRIMARY CARE PHYSICIAN: Frank Stringer MD CHIEF COMPLAINT: "I got up yesterday and my legs aren't working." HISTORY OF PRESENT ILLNESS: Mr. Amado is a pleasant 53-year-old gentleman, who has a history of lumbar disk disease. He has cervical and lumbar spine disease and he had a cervical decompression approximately a year ago. He says that after having this surgery had complications where he had significant upper and lower extremity weakness. He had to have a repeat surgery and was improving with this progressively over the past 6 months. He got to the point where he was able to walk and even return to work. He says during this time he still had difficulty with his gait and he was a little bit ataxic. He had to go off work again and go through physical therapy for another 8 weeks and then says after that he started to improve again until yesterday. He was with friend's during the day and was walking in the grass and he noticed that he seemed to be dragging his feet a little bit, but he went home and then he got up at 2:00 am to let his dog out and states that at that time, he noticed that his feet were dragging as well as his toes and he seemed that his gait was irregular. He says he went back to bed but then got up a few hours later and noticed that he had to hold onto things in order to walk and he was very concerned and thought that he would have a repeat of what happened to him a year ago and for this reason, he called EMS and came to the hospital for evaluation. In the ER, he had an MRI of the cervical, lumbar, and thoracic spine, none of which showed any discrete lesion, which would account for his symptoms and he is being placed in observation for further evaluation. He denies any new bowel or bladder dysfunction. However, he says that since his incident a year ago, he has difficulty with urge incontinence or he has to get to the bathroom quickly. Otherwise, he says that urine will just come and he also at times has difficulty getting the urine out, but he has not had any new symptoms. REVIEW OF SYSTEMS: All systems were reviewed and are negative except for that mentioned in the history of present illness. PAST MEDICAL HISTORY: Negative other than cervical spine disease. PAST SURGICAL HISTORY: He said he had a microdiskectomy and then had to have a surgical repair. ALLERGIES: NO KNOWN DRUG ALLERGIES. SOCIAL HISTORY: He is single. He has 3 children. He is a former smoker. He quit a few months ago. Prior to that he smoked about a pack a day for 10 years. He drinks a couple of beers a day. FAMILY HISTORY: No history of any heritable diseases. MEDICATIONS: Include; 1. Hydrocodone 10/325 q.4 hours as needed. 2. Gabapentin 600 mg t.i.d. and two at bedtime. 3. Xanax 1 mg, he says just as needed. 4. Soma 350 mg at bedtime. PHYSICAL EXAMINATION: GENERAL: He is alert and oriented. He appears to be in no acute distress. He is well developed and well nourished. VITAL SIGNS: Blood pressure was 124/89, heart rate 62, respiratory rate of 15, and temperature is 97.6. HEENT: Pupils are equal, round, and reactive. Extraocular muscles are intact. Sclerae are anicteric. Throat, no erythema. He does have some dry mucous membranes. NECK: There is no adenopathy. No bruits. LUNGS: Clear to auscultation primarily, but he did have some mild wheezing at the bases. CARDIOVASCULAR: He has a normal S1 and S2. There is no S3 or S4. No murmurs, clicks, or rubs. ABDOMEN: Soft, nontender, and nondistended. Positive for bowel sounds. No rebound. No guarding. No organomegaly. EXTREMITIES: There is no edema. No calf tenderness. No joint effusions. NEUROLOGIC: His cranial nerves are intact. His muscle strength is actually 5/5 in both his upper and lower extremities. However, he did have some weakness with dorsiflexion of the feet bilaterally and he had some weakness around the fingers. Mathematical Scientist strength, however, was intact. He did have a bit of muscle wasting in the hypothenar area and also his calf muscles appear to be slightly atrophied as well. His reflexes are a bit hyperreflexive in the lower extremities bilaterally. SKIN AND INTEGUMENT: There are no significant skin changes. No rashes. LABORATORY RESULTS: His complete blood cell count, hemoglobin is 15.1, hematocrit is 44.5, white blood cell count 8.4, and platelets 250. Sodium 135, potassium 4.2, chloride is 98, CO2 is 30, BUN of 18, creatinine 0.91, and glucose is 116. Urinalysis was negative. IMAGING DATA: He had again MRI of the cervical, thoracic, and lumbar spine showing multilevel degenerative joint disease, but there is no evidence of any discrete or focal spinal stenosis. ASSESSMENT AND PLAN: This is a pleasant 53-year-old gentleman, who presents with the sudden onset of bilateral leg weakness and some difficulty with his balance. He has been placed in observation. We will consult his primary neurosurgeon, Dr. Portillo, for evaluation. He has been seen by Joseph Dixon, but he has more confidence and trust in Dr. Portillo, and so therefore he would like to have his opinion as well and therefore, he will be consulted. We will also consult Neurology to cementer helper in evaluating the patient's weakness. Also with regard to pain control, we will continue him on his usual home medications. If he has been found to have some type of inflammatory process, then we can add steroids, but we will wait and see what the neurosurgery evaluation discovers. Job ID: [id number]
[2019-08-03] MEDS: Gabapentin 100 MG CAP PO SCH ×2 (12:33→17:18)
[2019-08-03] MEDS: HYDROcodone/Acetaminophen 10/325 mg Tablet PO SCH ×2 (12:33→17:19)
[2019-08-03 16:04] VITALS: TEMP 97.8
[2019-08-03] MEDS ORDERED: Famotidine 20 MG TAB PO SCH (21:00)
[2019-08-03] MEDS ORDERED: Cyclobenzaprine 10 MG TAB PO SCH (21:00)
[2019-08-03] MEDS ORDERED: CARISOPRODOL PO SCH (21:00)
[2019-08-03 21:07] VITALS: BP 135/70
--- NOTE | 2019-08-04 04:07 | DIS ---
DATE OF ADMISSION: 08/03/2019 DATE OF DISCHARGE: 08/03/2019 PRIMARY CARE PHYSICIAN: Dr. Stringer. DISCHARGE DISPOSITION: Home. DISCHARGE DIAGNOSES: 1. Lower extremity weakness. 2. History of cervical spinal stenosis. DISCHARGE MEDICATIONS: Include: 1. He is to continue [place] 10/325 one tablet q.4 hours as needed. No prescription was written. 2. Gabapentin 300 mg q.i.d. 3. Soma 350 mg at bedtime. 4. Xanax 0.5 mg q.8 as needed. IMAGING DONE DURING THE HOSPITAL STAY: He had an MRI of the cervical, thoracic, and lumbar spine. The lumbar spine showed a broad-based disk bulge with [id number] facet degenerative change but no canal stenosis or foraminal narrowing. There was also a broad disk bulge at L4 and L5 and L3 and L4. The patient also had a C-spine MRI showing some in-place degenerative change at C2 and C3 multilevel narrowing and also had an MRI of the thoracic spine showing multilevel degenerative change. The patient had a CT scan of the brain, which was negative for any acute intracranial abnormalities. CODE STATUS: Full code. ALLERGIES: NO KNOWN DRUG ALLERGIES. HOSPITAL COURSE: Mr. Amado is a pleasant 53-year-old gentleman who presented to the emergency room complaining of bilateral lower extremity weakness. The full details of which are outlined in the history and physical. He had had a previous episode a year ago where he had worsening of his cervical spine injury postsurgery and he was concerned that this had returned. He came to the ER and was evaluated. Had an MRI of the lumbar spine showing some degenerative change but nothing that would explain his weakness. For this reason, he was placed in observation and had an MRI of the cervical and thoracic spine as well. The changes were previously noted. By the following day, he had regained his strength back to his baseline, was up ambulating and walking and this was witnessed by myself. He was also evaluated by Neurosurgery and it was felt that there were no changes on the MRI or within his anatomy that would require surgical intervention or explain his weakness. Luckily, again his weakness completely resolved and he was able to be discharged home to have close outpatient followup with Dr. Portillo in 1 week and also with his primary care physician. Job ID: [id number]
[2019-08-04] MEDS ORDERED: Enoxaparin Sodium 40 MG/0.4 ML SYRINGE SC SCH (09:00)
== END 2019-08-03 20:04 | disposition home or self-care (01) ==
LOC: ERS 16:48 → 2SE 08-03 05:01 → INTOOBSV 08-03 05:01
PROVIDERS: ADMIT Internal Medicine; ATTEND Internal Medicine
DX: R29.898 Other symptoms and signs involving the musculoskeletal system (principal); R26.89 Other abnormalities of gait and mobility; Z79.899 Other long term (current) drug therapy; Z87.891 Personal history of nicotine dependence; Z98.890 Other specified postprocedural states
CPT/HCPCS: 70450; 72141; 72146; 72148; 80053; 81003; 82550; 85025; 96372; 97139; 99285; G0378 ×2; 36415; J1885

== ENCOUNTER 2020-06-14 08:16 | Outpatient (CLI) | payer MEDICARE | END 2020-06-14 08:17 | disposition home or self-care (01) | PROVIDERS: ATTEND Surgery | DX: M47.12 Other spondylosis with myelopathy, cervical region (principal) ==